=== PATIENT | male | born 1955 | race Caucasian/White ===

== ENCOUNTER 2020-07-12 10:31 | Outpatient (REF) | payer MEDICARE, SELFPAY ==
[2020-07-12 14:32] LABS: Basophils Percent Auto 0.6 % (0-2); Eosinophils Absolute Auto 0.1 X10*3/uL (0.0-0.4); Eosinophils Percent Auto 2.7 % (0-4); Hematocrit 32.7 % (42-52); Hemoglobin 10.9 g/dl (14.0-18.0); Imm Gran Abs Auto 0.03 X10*3/uL (0.00-0.03); Imm Gran Pct Auto 0.6 % (0.0-0.4); Lymphocytes Absolute Auto 0.5 X10*3/uL (1.2-4.9); Lymphocytes Percent Auto 9.3 % (20-40); MANUAL DIFF FLAG SCAN; Mean Corpuscular HGB Conc 33.3 g/dl (31.0-36.0); Mean Corpuscular Hemoglobin 29.1 pg (27.0-33.0); Mean Corpuscular Volume 87.4 fL (80-98); Mean Platelet Volume 11.2 fL (9.4-12.4); Monocytes Absolute Auto 0.4 X10*3/uL (0.1-1.2); Monocytes Percent Auto 7.2 % (2-11); Neutrophils Absolute Auto 4.2 X10*3/uL (2.0-8.3); Neutrophils Percent Auto 79.6 % (45-73); Platelet Count 117 X10*3/uL (160-400); Red Blood Count 3.74 X10*6/uL (4.60-5.80); Red Cell Distribution Width 14.1 % (11.0-16.0); SCAN SMEAR FLAG 1; White Blood Count 5.3 X10*3/uL (4.8-10.8)
[2020-07-12 14:40] LABS: Estimated Average Glucose 134 mg/dL; Hemoglobin A1c % 6.3 %
[2020-07-12 14:53] LABS: SLIDE REVIEW VERIFIED
[2020-07-12 14:57] LABS: Alanine Aminotransferase 26 U/L (0-40); Albumin Level 3.8 g/dL (3.5-5.0); Alkaline Phosphatase 110 U/L (39-117); Anion Gap 11 (12-20); Aspartate Amino Transferase 27 U/L (5-37); Bilirubin Total 0.6 mg/dL (0.0-1.0); Blood Urea Nitrogen 34 mg/dL (9-16); Calcium 8.6 mg/dL (8.4-10.2); Carbon Dioxide 31 mmol/L (22-29); Chloride 105 mmol/L (96-108); Cholesterol 110 mg/dL; Estimated Glomerular Filt Rate 41; Glucose Fasting 200 mg/dL (60-99); HDL Cholesterol 46 mg/dL; LDL Cholesterol Calculated 55 mg/dl; Potassium 3.4 mmol/l (3.3-5.1); Sodium 144 mmol/L (135-145); Total Protein 5.7 g/dL (6.5-8.0); Triglycerides 45 mg/dL
[2020-07-12 15:09] LABS: Creatinine Urine 159.59 mg/dL
[2020-07-12 16:06] LABS: Vitamin B12 476 pg/mL (200-900)
== END 2020-07-12 10:32 | disposition home or self-care (01) ==
LOC: HO.HMGCLDS 10:31
PROVIDERS: PCP Internal Medicine; Visit Provider Internal Medicine
DX: Z00.00 Encounter for general adult medical examination without abnormal findings (principal); E11.9 Type 2 diabetes mellitus without complications; E78.00 Pure hypercholesterolemia, unspecified; Z86.010 Personal history of colon polyps
CPT/HCPCS: 36415; 80053; 80061; 82043; 82607; 83036; 85025

== ENCOUNTER → 2020-07-26 14:21 | Outpatient (BNVA) | payer MEDICARE, SELFPAY | PROVIDERS: PCP Internal Medicine; Visit Provider Internal Medicine Cardiovascular Disease | DX: I11.0 Hypertensive heart disease with heart failure (principal); I50.32 Chronic diastolic (congestive) heart failure; Z79.899 Other long term (current) drug therapy | CPT/HCPCS: 99212 ==

== ENCOUNTER 2020-08-10 13:20 | Outpatient (REF) | payer MEDICARE, SELFPAY ==
[2020-08-10 15:16] LABS: Anion Gap 10 (12-20); Blood Urea Nitrogen 42 mg/dL (9-16); Calcium 9.1 mg/dL (8.4-10.2); Carbon Dioxide 32 mmol/L (22-29); Chloride 103 mmol/L (96-108); Estimated Glomerular Filt Rate 43; Glucose Random 114 mg/dL (60-115); Potassium 3.4 mmol/l (3.3-5.1); Sodium 142 mmol/L (135-145)
== END 2020-08-10 13:21 | disposition home or self-care (01) ==
LOC: HO.HMGCLDS 13:20
PROVIDERS: PCP Internal Medicine; Visit Provider Internal Medicine Cardiovascular Disease
DX: I50.32 Chronic diastolic (congestive) heart failure (principal)
CPT/HCPCS: 80048

== ENCOUNTER 2020-09-25 08:43 | Day surgery (SDC) | payer MEDICARE, SELFPAY ==
[2020-09-17 13:16] VITALS: BMI 37.5
--- NOTE | 2020-09-24 08:49 | P.CONAN_ITS ---
Documented by User: Tiki Dowd 09/24/20 08:53 HPI - Anesthesia Eval Consult details Narrative: 65yo M for Colonoscopy PMFSH Past Medical History Medical History (Updated 09/24/20 @ 08:52 by Tiki Dowd) Chronic diastolic heart failure Diabetes Hypertension Obesity Sleep apnea Family History Family History (Updated 09/17/20 @ 13:02 by Tatyana Knight) Father No problems noted. Mother Diabetes Paternal Aunt Anesthesia complication Surgical History Surgical History (Updated 09/17/20 @ 13:00 by Tatyana Knight) H/O nasal septoplasty History of adjustable gastric banding Hx of colonoscopy with polypectomy Social History Social History (Updated 09/17/20 @ 13:15 by Tatyana Knight) Alcohol intake: never Smoking Status: Current some day smoker Tobacco Type: Cigar and Pipe Use of substances other than those prescribed or required for medical reasons: No Advance Directives: No Advance Directives Information Provided: No Advance Directives on File: No Meds Allergies Allergy/AdvReac Type Severity Reaction Status Date / Time allopurinol [ALLOPURINOL] Allergy Intermediate HIVES, rash Verified 09/25/20 10:51 DUST Allergy Mild Cough Uncoded 09/25/20 10:52 Home Medications Medication Instructions Recorded Confirmed Type atorvastatin 40 mg tablet 40 mg PO BEDTIME 07/26/20 09/17/20 History carvedilol 25 mg tablet 25 mg PO BID 07/26/20 09/17/20 History lithium carbonate 150 mg capsule 150 mg PO BEDTIME cap 07/26/20 09/17/20 History metformin 1,000 mg tablet 1,000 mg PO BID 07/26/20 09/17/20 History amlodipine 1 tab PO DAILY 09/17/20 09/17/20 History aspirin 81 mg PO DAILY 09/17/20 09/17/20 History hydrochlorothiazide 50 mg PO DAILY 09/17/20 09/17/20 History insulin NPH and regular human 20 unit SUBCUT BEDTIME 09/17/20 09/25/20 History insulin NPH and regular human 40 unit SUBCUT DAILY@0730 09/17/20 09/17/20 History isosorbide mononitrate 1 tab PO DAILY 09/17/20 09/17/20 History losartan 1 tab PO BEDTIME 09/17/20 09/17/20 History multivitamin 1 tab PO DAILY 09/17/20 09/17/20 History sertraline 2 tab PO DAILY 09/17/20 09/17/20 History Exam Exam Date and Time: September 24, 2020 0849 Height,Weight and Vital Signs: Height 5 ft 7 in Weight 108.862 kg Pertinent Lab Results Pertinent Lab Results: Laboratory Tests 07/12/20 08/10/20 10:40 13:29 WBC 5.3 Hgb 10.9 L Hct 32.7 L Plt Count 117 L Sodium 142 Potassium 3.4 Chloride 103 Carbon Dioxide 32 H BUN 42 H Creatinine 1.62 H Narrative Narrative: ECHO 2019: Low nml LVEF 50-55%; No obvious RWMA, mild-mod aortic regurg; Mod pulm htn Assessment and Plan Assessment Anesthesia Assessment: Chart Reviewed Documented by User: Terrance Braswell MD 09/25/20 14:01 [facility] Past Medical History Medical History (Updated 09/24/20 @ 08:52 by Tiki Dowd) Chronic diastolic heart failure Diabetes Hypertension Obesity Sleep apnea Family History Family History (Updated 09/17/20 @ 13:02 by Tatyana Knight) Father No problems noted. Mother Diabetes Paternal Aunt Anesthesia complication Surgical History Surgical History (Updated 09/17/20 @ 13:00 by Tatyana Knight) H/O nasal septoplasty History of adjustable gastric banding Hx of colonoscopy with polypectomy Social History Social History (Updated 09/17/20 @ 13:15 by Tatyana Knight) Alcohol intake: never Smoking Status: Current some day smoker Tobacco Type: Cigar and Pipe Use of substances other than those prescribed or required for medical reasons: No Advance Directives: No Advance Directives Information Provided: No Advance Directives on File: No Meds Allergies Allergy/AdvReac Type Severity Reaction Status Date / Time allopurinol [ALLOPURINOL] Allergy Intermediate HIVES, rash Verified 09/25/20 10:51 DUST Allergy Mild Cough Uncoded 09/25/20 10:52 Home Medications Medication Instructions Recorded Confirmed Type atorvastatin 40 mg tablet 40 mg PO BEDTIME 07/26/20 09/17/20 History carvedilol 25 mg tablet 25 mg PO BID 07/26/20 09/17/20 History lithium carbonate 150 mg capsule 150 mg PO BEDTIME cap 07/26/20 09/17/20 History metformin 1,000 mg tablet 1,000 mg PO BID 07/26/20 09/17/20 History amlodipine 1 tab PO DAILY 09/17/20 09/17/20 History aspirin 81 mg PO DAILY 09/17/20 09/17/20 History hydrochlorothiazide 50 mg PO DAILY 09/17/20 09/17/20 History insulin NPH and regular human 20 unit SUBCUT BEDTIME 09/17/20 09/25/20 History insulin NPH and regular human 40 unit SUBCUT DAILY@0730 09/17/20 09/17/20 History isosorbide mononitrate 1 tab PO DAILY 09/17/20 09/17/20 History losartan 1 tab PO BEDTIME 09/17/20 09/17/20 History multivitamin 1 tab PO DAILY 09/17/20 09/17/20 History sertraline 2 tab PO DAILY 09/17/20 09/17/20 History Assessment and Plan Assessment Anesthesia Assessment: Anesthesia Plan Discussed Final Anesthetic Review NPO: Yes ASA Class: IV Final Preanesthetic Review: No Changes in Pt Med Stat, Meds/Allgs Chart Reviewed, Consent Obtained/Reviewed and Anes Risks/Benef Reviewed Patient Risk: Intermediate Procedure Risk: Low Anesthetic Plan Anesthetic Plan: MAC: Disposition: Standard PACU
[2020-09-25] VITALS (7 sets, daily range): BP systolic 164–213; BP diastolic 96–116; PULSE 59–77; RESP 12–20; TEMP 36.5–36.6; O2SAT 96–100
[2020-09-25 10:29] LABS: Glucose, Whole Blood 172 mg/dL (60-115)
[2020-09-25] MEDS: Lactated Ringers 1,000 ML 50 ML IVCONT (10:54)
--- NOTE | 2020-09-25 11:44 | OP_ITS ---
SURGEON: Seven Franco MD INDICATIONS: Colon cancer screening and prior history of adenomatous colon polyps. PREOPERATIVE DIAGNOSIS: POSTOPERATIVE DIAGNOSIS: PROCEDURE PERFORMED: Colonoscopy to the terminal ileum, snare polypectomy, and biopsy. ESTIMATED BLOOD LOSS: COMPLICATIONS: ANESTHESIA: ASSISTANTS: SPECIMENS: MEDICATIONS: Monitored anesthesia care. DESCRIPTION OF PROCEDURE: History and physical performed. The risks and benefits of the procedure were explained to the patient. Informed consent was obtained. The patient was placed in the left lateral decubitus position. A digital rectal exam was performed and was found to be normal. The Olympus pediatric video colonoscope was introduced into the rectum and advanced to the cecum without difficulty. The cecum was identified by transillumination, palpation, and identification of ileocecal valve. Examination was performed. The scope was removed. He tolerated the procedure well and was transferred to recovery area in stable condition. FINDINGS: The terminal ileum was examined and appeared normal. The visualized colonic mucosa was within normal limits without evidence of masses or ulcers. The quality of the prep was good. The exam was somewhat difficult because of the patient's respiratory motion caused the colon to be difficult to visualize at times. A polyp at 70 cm was removed with a snare measuring approximately 8 mm and recovered via suction. A second polyp in the rectosigmoid at 25 cm was removed with biopsy forceps. No other polyps were identified. The quality of the prep was good. Retroflexed examination was remarkable for small internal hemorrhoids. IMPRESSION: Colon polyps. RECOMMENDATION: Follow up the biopsy results. MD MARTITA Izquierdo/JANA / [id number]
[2020-09-25] MEDS: amLODIPine Besylate 10 MG TABLET PO (13:09)
[2020-09-25] MEDS: carvediloL 25 MG TABLET PO (13:10)
[2020-09-25] MEDS: Losartan Potassium 50 MG TABLET PO (13:13)
--- NOTE | 2020-09-25 14:01 | HO.POSTANES ---
Post Anesthesia Evaluation Post Anesthesia Evaluation Vital Signs: Vital Signs Temp Pulse Resp BP Pulse Ox 09/25/20 13:13 210/100 H 09/25/20 13:10 210/100 H 09/25/20 11:48 97.7 F 71 18 213/116 H 97 09/25/20 11:45 75 17 204/114 H 97 09/25/20 11:43 75 12 198/116 H 96 09/25/20 11:28 77 20 164/96 H 100 09/25/20 10:37 98 F 59 18 211/107 H 96 Anesthesia: Monitored Mental Status: Awake Pain Control: Satisfactory Nausea/Vomiting: None Hydration: Adequate Anesthesia-Related Issues: No Anes. Related Issues (BP consistely high pre and post-op; home meds given; asymptomatic; counseled to f/u with cards CHRISTINA)
== END 2020-09-25 14:00 | disposition home or self-care (01) ==
PROVIDERS: PCP Internal Medicine; Visit Provider Internal Medicine Gastroenterology
PROC: 0DJD8ZZ Inspection of Lower Intestinal Tract, Via Natural or Artificial Opening Endoscopic (ICD-10-PCS; CPT 45378; principal; 2020-09-25 10:40)
DX: Z12.11 Encounter for screening for malignant neoplasm of colon (principal); Z86.010 Personal history of colon polyps; D12.4 Benign neoplasm of descending colon; K63.5 Polyp of colon; K64.8 Other hemorrhoids; I11.0 Hypertensive heart disease with heart failure; I50.32 Chronic diastolic (congestive) heart failure; E11.9 Type 2 diabetes mellitus without complications; G47.33 Obstructive sleep apnea (adult) (pediatric); Z79.4 Long term (current) use of insulin; Z99.89 Dependence on other enabling machines and devices; Z79.899 Other long term (current) drug therapy; F17.290 Nicotine dependence, other tobacco product, uncomplicated; Z98.84 Bariatric surgery status
CPT/HCPCS: 45385; 45380; 82947; 88305

== ENCOUNTER → 2020-11-07 10:12 | Outpatient (BNVA) | payer MEDICARE, SELFPAY | PROVIDERS: PCP Internal Medicine; Visit Provider Internal Medicine Cardiovascular Disease | DX: I11.0 Hypertensive heart disease with heart failure (principal); I50.32 Chronic diastolic (congestive) heart failure; R06.00 Dyspnea, unspecified | CPT/HCPCS: 93005; 99212 ==

== ENCOUNTER → 2020-11-21 08:18 | Outpatient (REF) | payer MEDICARE, SELFPAY ==
--- NOTE | 2020-11-21 08:21 | CA_ITS ---
Acquisition Time: 2020-11-21 08:28:31 Total Exercise Time: 00:01:40 Test Indications: Dyspnea Medications: AMLODIPINE ASA ATORVASTATIN CARVEDILOL HCTZ ISOSORBIDE LITHIUM LOSARTAN METFORMIN SERTRALINE Protocol: ELE Max HR: 116 BPM 75% of Pred: 154 BPM Max BP: 184/080 mmHG Max Work Load: 4.0 METS Exercise stress test with exercise 1 min 40 sec of Ele protocol with moderate shortness of breath and request to stop exercise, no chest discomfort, with isolated PVCs, with mildly elevated BP at baseline with appropriate response to exercise, with nondiagnostic EKG due to suboptimal heart rate and exercise time. Will order pharm nuclear stress to eval for ischemia. Test reviewed with Dr Nino. Referred By: Molina Orellana Overread By: CRESCENCIO PUENTES
== END ==
LOC: HO.CARD 08:18
PROVIDERS: PCP Internal Medicine; Visit Provider Internal Medicine Cardiovascular Disease
DX: R06.00 Dyspnea, unspecified (principal); R06.02 Shortness of breath
CPT/HCPCS: 93016; 93017; 93018

== ENCOUNTER → 2020-11-29 07:45 | Outpatient (REF) | payer MEDICARE, SELFPAY ==
--- NOTE | ~2020-11-29 | NM_ITS ---
Lexiscan Myocardial perfusion study Indication: Shortness of breath, assess for coronary disease and ischemia Technique: The patient was brought in for a Lexiscan perfusion study on 11/29/2020 and was injected 0.4 mg of Lexiscan intravenously. Within a minute of this injection 40 mCi of sestamibi was given intravenously. Images were obtained using the SPECT gamma camera interlaced with the gating device. Images were obtained in supine position. Resting perfusion study was performed on 11/30/2020. Patient was administered 40 mCi of sestamibi intravenously at rest. Images were then obtained in supine position. Total DLP 76mGy-cm. Images were processed with the software and compared side to side in short axis, horizontal long axis and vertical long axis views. Findings: Raw acquisition was reviewed. The stress perfusion study showed diminished tracer uptake along the inferior wall and basal inferolateral wall. There is also decreased uptake in the mid teri septum. With CT attenuation correction, there is significant improvement in the inferior wall and inferolateral wall suggestive of diaphragmatic attenuation artifact. The anteroseptal defect also improves suggesting soft tissue attenuation. The gated study shows normal LV systolic function with calculated LVEF of 60%. LV cavity is normal in size. The gated study shows normal wall thickening and contraction of segments. Resting study shows diminished tracer uptake along the basal to mid inferior and inferolateral wall. Gating at rest reveals normal wall motion with ejection fraction at 63%. The findings are consistent with reversible mid anteroseptal defect suspected to be from soft tissue artifact. Inferior/inferolateral defect with fixed and some reversible components but could be from diaphragmatic artifact. NM/NM j luis perf SPECT rest & str Impression: 1. Myocardial perfusion imaging study shows reversible mid anteroseptal defect suspected to be from soft tissue artifact. Inferior/inferolateral defect with reversible and fixed components, again suspected to be from diaphragmatic artifact. Less likely from ischemia or infarct. Correlate clinically. 2. Gated LVEF is 60% during stress and 63% during rest. 3. Transient ischemic dilatation not present. EKG component of the test reported separately.
--- NOTE | 2020-11-29 08:00 | CA_ITS ---
Acquisition Time: 2020-11-29 08:01:53 Total Exercise Time: 00:02:00 Test Indications: Dyspnea Medications: AMLODIPINE ASA ATORVASTATIN CARVEDILOL HCTZ ISOSORBIDE LITHIUM LOSARTAN METFORMIN SERTRALINE Protocol: LEXISCAN Max HR: 080 BPM 51% of Pred: 154 BPM Max BP: 152/082 mmHG Max Work Load: 1.0 METS Pharmacological stress test using Lexiscan while sitting and kicking his feet. Pt tolerated well. Denies any anginal sx. EKG with PVC's, non-diagnostic for ischemia. Nuclear images to follow. Normotensive response to test. Test reviewed with Dr. Nino. Referred By: Monica Sue Overread By:
== END ==
LOC: HO.CARD 07:45
PROVIDERS: Visit Provider Nurse Practitioner Family
DX: I50.32 Chronic diastolic (congestive) heart failure (principal); R06.00 Dyspnea, unspecified; R94.30 Abnormal result of cardiovascular function study, unspecified
CPT/HCPCS: 78452; 93017; A9500; J0280; J2785

== ENCOUNTER → 2020-11-30 10:58 | Outpatient (BNVA) | payer MEDICARE, SELFPAY | PROVIDERS: PCP Internal Medicine; Visit Provider Nurse Practitioner Family | DX: R06.00 Dyspnea, unspecified (principal); R94.30 Abnormal result of cardiovascular function study, unspecified; I11.0 Hypertensive heart disease with heart failure; I50.32 Chronic diastolic (congestive) heart failure; G47.30 Sleep apnea, unspecified; E11.9 Type 2 diabetes mellitus without complications; Z79.899 Other long term (current) drug therapy; Z87.891 Personal history of nicotine dependence | CPT/HCPCS: Q3014 ==

== ENCOUNTER 2020-12-10 11:44 | Outpatient (REF) | payer MEDICARE, SELFPAY ==
[2020-12-10 14:46] LABS: INTERNATIONAL NORM RATIO 1.1 (0.9-1.1); Prothrombin Time 12.5 SEC (10.8-13.0)
[2020-12-10 14:57] LABS: Anion Gap 11 (12-20); Blood Urea Nitrogen 34 mg/dL (9-16); Calcium 8.6 mg/dL (8.4-10.2); Carbon Dioxide 29 mmol/L (22-29); Chloride 103 mmol/L (96-108); Estimated Glomerular Filt Rate 37; Glucose Random 188 mg/dL (60-115); Potassium 3.2 mmol/L (3.3-5.1); Sodium 140 mmol/L (135-145)
[2020-12-10 15:01] LABS: Hematocrit 29.2 % (42-52); Hemoglobin 9.9 g/dl (14.0-18.0); Mean Corpuscular HGB Conc 33.9 g/dl (31.0-36.0); Mean Corpuscular Hemoglobin 28.2 pg (27.0-33.0); Mean Corpuscular Volume 83.2 fL (80-98); Mean Platelet Volume 11.1 fL (9.4-12.4); Platelet Count 130 X10*3/uL (160-400); Red Blood Count 3.51 X10*6/uL (4.60-5.80); Red Cell Distribution Width 13.6 % (11.0-16.0); White Blood Count 4.7 X10*3/uL (4.8-10.8)
== END 2020-12-10 11:45 | disposition home or self-care (01) ==
LOC: HO.HMGCLDS 11:44
PROVIDERS: PCP Internal Medicine; Visit Provider Internal Medicine Cardiovascular Disease
DX: R94.30 Abnormal result of cardiovascular function study, unspecified (principal)
CPT/HCPCS: 36415; 80048; 85027; 85610

== ENCOUNTER 2020-12-17 12:46 | Outpatient (REF) | payer MEDICARE, SELFPAY ==
[2020-12-17 15:31] LABS: Anion Gap 12 (12-20); Blood Urea Nitrogen 31 mg/dL (9-16); Calcium 8.5 mg/dL (8.4-10.2); Carbon Dioxide 29 mmol/L (22-29); Chloride 101 mmol/L (96-108); Estimated Glomerular Filt Rate 31; Glucose Random 64 mg/dL (60-115); Potassium 3.3 mmol/L (3.3-5.1); Sodium 139 mmol/L (135-145)
== END 2020-12-17 12:47 | disposition home or self-care (01) ==
LOC: HO.HMGCLNP 12:46
PROVIDERS: PCP Internal Medicine; Visit Provider Internal Medicine Cardiovascular Disease
DX: I50.32 Chronic diastolic (congestive) heart failure (principal)
CPT/HCPCS: 80048

== ENCOUNTER 2020-12-20 10:41 | Outpatient (REF) | payer MEDICARE, SELFPAY ==
[2020-12-20 14:30] LABS: Anion Gap 14 (12-20); Blood Urea Nitrogen 32 mg/dL (9-16); Calcium 8.7 mg/dL (8.4-10.2); Carbon Dioxide 28 mmol/L (22-29); Chloride 104 mmol/L (96-108); Estimated Glomerular Filt Rate 33; Glucose Random 172 mg/dL (60-115); Potassium 3.1 mmol/L (3.3-5.1); Sodium 143 mmol/L (135-145)
== END 2020-12-20 10:42 | disposition home or self-care (01) ==
LOC: HO.HMGCLDS 10:41
PROVIDERS: PCP Internal Medicine; Visit Provider Internal Medicine Cardiovascular Disease
DX: N17.9 Acute kidney failure, unspecified (principal)
CPT/HCPCS: 36415; 80048

== ENCOUNTER 2020-12-21 10:21 | Outpatient (REF) | payer MEDICARE, SELFPAY ==
--- NOTE | ~2020-12-21 | XR_ITS ---
EXAMINATION: XR KNEE, LEFT CLINICAL INFORMATION: Unspecified injury left lower leg. COMPARISON: None TECHNIQUE: Four views of the left knee. FINDINGS: There is moderate soft tissue density anterior to the patella likely hemorrhage. No visible fracture, dislocation subluxation seen. Mild loss of medial compartment joint space with periapical spurring in the lateral and patellofemoral compartment joint is noted. The soft tissues are unremarkable. XR/XR knee LT 4V IMPRESSION: Moderate soft tissue density anterior patella likely hematoma. Mild degenerative changes medial and patellofemoral compartment with periarticular spurring.
== END 2020-12-21 10:22 | disposition home or self-care (01) ==
LOC: HO.HMGCX 10:21
PROVIDERS: PCP Internal Medicine; Visit Provider Nurse Practitioner Family
DX: S89.92XA Unspecified injury of left lower leg, initial encounter (principal); T14.8XXA Other injury of unspecified body region, initial encounter; X58.XXXA Exposure to other specified factors, initial encounter; Y93.9 Activity, unspecified; Y92.9 Unspecified place or not applicable; Y99.9 Unspecified external cause status
CPT/HCPCS: 73564

== ENCOUNTER → 2020-12-24 13:24 | Outpatient (BNVA) | payer MEDICARE, SELFPAY | PROVIDERS: PCP Internal Medicine; Visit Provider Internal Medicine Cardiovascular Disease | DX: I11.0 Hypertensive heart disease with heart failure (principal); I50.32 Chronic diastolic (congestive) heart failure; R06.00 Dyspnea, unspecified; R94.30 Abnormal result of cardiovascular function study, unspecified; G47.30 Sleep apnea, unspecified; E11.9 Type 2 diabetes mellitus without complications; Z98.890 Other specified postprocedural states | CPT/HCPCS: 99212 ==

== ENCOUNTER → 2021-02-05 14:06 | Outpatient (BNVA) | payer MEDICARE, SELFPAY | PROVIDERS: PCP Internal Medicine; Visit Provider Internal Medicine | DX: G47.30 Sleep apnea, unspecified (principal); R06.00 Dyspnea, unspecified; I50.32 Chronic diastolic (congestive) heart failure | CPT/HCPCS: 99202 ==

== ENCOUNTER → 2021-02-13 11:13 | Outpatient (BNVA) | payer MEDICARE, SELFPAY | PROVIDERS: PCP Internal Medicine; Visit Provider Internal Medicine Cardiovascular Disease | DX: I11.0 Hypertensive heart disease with heart failure (principal); I50.32 Chronic diastolic (congestive) heart failure | CPT/HCPCS: 99212 ==

== ENCOUNTER 2021-02-19 14:01 | Outpatient (REF) | payer MEDICARE, SELFPAY ==
--- NOTE | 2021-02-19 17:39 | PFT_ITS ---
INDICATION: Shortness of breath. SPIROMETRY: The FEV1 to FVC of 83% with an FEV1 of 2.45 L, which is 81% predicted, and an FVC of 2.95 L, which is 73% predicted. No significant response to bronchodilators noted. Maximum voluntary ventilation 95% predicted. LUNG VOLUMES: Total lung capacity 86% predicted. DIFFUSION CAPACITY: DLCO 58% predicted. Flow volume loop appears to have some slight concavity to the expiratory limb suggesting an obstructive physiology. COMPARISONS: None. INTERPRETATION: No definitive obstructive nor restrictive ventilatory defects identified. No significant response to bronchodilators noted. Of note, the flow volume loop appeared to have a concavity suggesting possibly an obstructive physiology. Normal maximum voluntary ventilation. Lung volumes are within normal limits. The patient does have an isolated moderate diffusion impairment, therefore need to consider underlying pulmonary vascular conditions and/or occult interstitial lung conditions. Should also correct for anemia. Clinical correlation warranted. MD IFEANYI Heath/MODL / [id number]
== END 2021-02-19 14:02 | disposition home or self-care (01) ==
LOC: HO.RESP 14:01
PROVIDERS: PCP Internal Medicine; Visit Provider Internal Medicine
DX: R06.00 Dyspnea, unspecified (principal)
CPT/HCPCS: 94060; 94727; 94729

== ENCOUNTER → 2021-02-28 14:08 | Outpatient (BNVA) | payer MEDICARE, SELFPAY | PROVIDERS: PCP Internal Medicine; Visit Provider Internal Medicine | DX: R06.00 Dyspnea, unspecified (principal); G47.30 Sleep apnea, unspecified; I50.32 Chronic diastolic (congestive) heart failure | CPT/HCPCS: 99212 ==

== ENCOUNTER 2021-03-08 08:25 | Outpatient (REF) | payer MEDICARE, SELFPAY ==
--- NOTE | ~2021-03-08 | XR_ITS ---
EXAMINATION: XR KNEE, LEFT CLINICAL INFORMATION: Knee pain COMPARISON: 12/21/2020 TECHNIQUE: Single skyline view of the left knee. FINDINGS: Some posterior osteophytes are seen similar to those noted on the 12/21/2020 exam. No other bony abnormality is detected. Prepatellar soft tissue swelling is seen. XR/XR knee LT 3V IMPRESSION: Osteophytes on the posterior surface of the patella
== END 2021-03-08 08:26 | disposition home or self-care (01) ==
LOC: HO.HOSX 08:25
PROVIDERS: Visit Provider Physician Assistant
DX: M17.12 Unilateral primary osteoarthritis, left knee (principal)
CPT/HCPCS: 20610; 73562; 99202; J1040

== ENCOUNTER → 2021-03-25 12:35 | Outpatient (BNVA) | payer MEDICARE, SELFPAY | PROVIDERS: PCP Internal Medicine; Visit Provider Internal Medicine Cardiovascular Disease ==

== ENCOUNTER 2021-04-03 12:53 | Outpatient (REF) | payer MEDICARE, SELFPAY ==
[2021-04-03 13:55] LABS: MANUAL DIFF FLAG NO
[2021-04-03 13:56] LABS: Basophils Percent Auto 0.2 % (0-2); Eosinophils Absolute Auto 0.1 X10*3/uL (0.0-0.4); Hematocrit 29.3 % (42-52); Hemoglobin 9.7 g/dl (14.0-18.0); Imm Gran Abs Auto 0.01 X10*3/uL (0.00-0.03); Imm Gran Pct Auto 0.2 % (0.0-0.4); Lymphocytes Absolute Auto 0.4 X10*3/uL (1.2-4.9); Mean Corpuscular HGB Conc 33.1 g/dl (31.0-36.0); Mean Corpuscular Hemoglobin 27.1 pg (27.0-33.0); Mean Corpuscular Volume 81.8 fL (80-98); Mean Platelet Volume 10.6 fL (9.4-12.4); Monocytes Absolute Auto 0.3 X10*3/uL (0.1-1.2); Monocytes Percent Auto 7.1 % (2-11); Neutrophils Absolute Auto 3.3 X10*3/uL (2.0-8.3); Neutrophils Percent Auto 81.5 % (45-73); Platelet Count 122 X10*3/uL (160-400); Red Blood Count 3.58 X10*6/uL (4.60-5.80); Red Cell Distribution Width 16.8 % (11.0-16.0); White Blood Count 4.1 X10*3/uL (4.8-10.8)
[2021-04-03 14:10] LABS: Estimated Average Glucose 134 mg/dL; Hemoglobin A1c % 6.3 %
[2021-04-03 14:26] LABS: Alanine Aminotransferase 26 U/L (0-40); Albumin Level 3.8 g/dL (3.5-5.0); Alkaline Phosphatase 118 U/L (39-117); Anion Gap 14 (12-20); Aspartate Amino Transferase 19 U/L (5-37); Bilirubin Total 0.8 mg/dL (0.0-1.0); Blood Urea Nitrogen 34 mg/dL (9-16); Calcium 9.3 mg/dL (8.4-10.2); Carbon Dioxide 26 mmol/L (22-29); Chloride 105 mmol/L (96-108); Estimated Glomerular Filt Rate 31; Glucose Random 153 mg/dL (60-115); Potassium 3.2 mmol/L (3.3-5.1); Sodium 142 mmol/L (135-145); Total Protein 5.8 g/dL (6.5-8.0)
[2021-04-03 14:52] LABS: Ferritin 127 ng/mL (20-250)
[2021-04-03 15:00] LABS: Vitamin B12 622 pg/mL (200-900)
== END 2021-04-03 12:54 | disposition home or self-care (01) ==
LOC: HO.HMGCLDS 12:53
PROVIDERS: PCP Internal Medicine; Visit Provider Internal Medicine
DX: E11.22 Type 2 diabetes mellitus with diabetic chronic kidney disease (principal); I12.9 Hypertensive chronic kidney disease with stage 1 through stage 4 chronic kidney disease, or unspecified chronic kidney disease; N18.9 Chronic kidney disease, unspecified; D63.1 Anemia in chronic kidney disease; H26.8 Other specified cataract
CPT/HCPCS: 36415; 80053; 82607; 82728; 83036; 85025

== ENCOUNTER 2021-05-27 10:59 | Outpatient (REF) | payer MEDICARE, SELFPAY ==
[2021-05-27 14:11] LABS: MANUAL DIFF FLAG NO
[2021-05-27 14:27] LABS: Basophils Percent Auto 0.2 % (0-2); Eosinophils Absolute Auto 0.1 X10*3/uL (0.0-0.4); Hematocrit 28.4 % (42-52); Hemoglobin 9.3 g/dl (14.0-18.0); Imm Gran Abs Auto 0.02 X10*3/uL (0.00-0.03); Imm Gran Pct Auto 0.4 % (0.0-0.4); Lymphocytes Absolute Auto 0.4 X10*3/uL (1.2-4.9); Lymphocytes Percent Auto 7.3 % (20-40); Mean Corpuscular HGB Conc 32.7 g/dl (31.0-36.0); Mean Corpuscular Hemoglobin 28.2 pg (27.0-33.0); Mean Corpuscular Volume 86.1 fL (80-98); Mean Platelet Volume 11.2 fL (9.4-12.4); Monocytes Absolute Auto 0.5 X10*3/uL (0.1-1.2); Monocytes Percent Auto 9.4 % (2-11); Neutrophils Absolute Auto 4.1 X10*3/uL (2.0-8.3); Neutrophils Percent Auto 80.7 % (45-73); Platelet Count 123 X10*3/uL (160-400); Red Cell Distribution Width 16.4 % (11.0-16.0); White Blood Count 5.1 X10*3/uL (4.8-10.8)
[2021-05-27 14:45] LABS: Anion Gap 15 (12-20); Blood Urea Nitrogen 30 mg/dL (9-16); Calcium 8.4 mg/dL (8.4-10.2); Carbon Dioxide 25 mmol/L (22-29); Chloride 106 mmol/L (96-108); Estimated Glomerular Filt Rate 29; Iron 94 mcg/dL (45-160); Percent Iron Saturation 27 % (15-50); Phosphorus 3.3 mg/dL (2.7-4.5); Potassium 3.1 mmol/L (3.3-5.1); Sodium 143 mmol/L (135-145); Total Iron Binding Capacity 344 mcg/dL (228-428); Unsaturated Iron Binding 250 ug/dL; Uric Acid 6.7 mg/dL (3.4-7.0)
[2021-05-27 14:58] LABS: Ferritin 339 ng/mL (20-250); Vitamin D 25-OH Total 26.4 ng/mL (>30)
[2021-05-27 15:28] LABS: Creatinine Urine 37.09 mg/dL
[2021-05-27 15:40] LABS: Protein/Creatinine Ratio, Ur 7.31 (<0.2); Total Protein Urine Random 271 mg/dL (<12)
[2021-05-28 19:27] LABS: Calcium (PTHI) 8.5 mg/dL (8.6-10.3); PTHI 224 pg/mL (14-64)
== END 2021-05-27 11:00 | disposition home or self-care (01) ==
LOC: HO.HMGCLDS 10:59
PROVIDERS: PCP Internal Medicine; Visit Provider Internal Medicine Nephrology
DX: D50.8 Other iron deficiency anemias (principal); D63.1 Anemia in chronic kidney disease; E11.29 Type 2 diabetes mellitus with other diabetic kidney complication; N18.32 Chronic kidney disease, stage 3b; E11.21 Type 2 diabetes mellitus with diabetic nephropathy; E11.22 Type 2 diabetes mellitus with diabetic chronic kidney disease; G47.33 Obstructive sleep apnea (adult) (pediatric); R80.9 Proteinuria, unspecified; N28.1 Cyst of kidney, acquired; I51.9 Heart disease, unspecified; R60.0 Localized edema
CPT/HCPCS: 36415; 80051; 82306; 82310; 82565; 82728; 83540; 83735; 83970; 84100; 84156; 84520; 84550; 85025

== ENCOUNTER 2021-07-03 14:17 | Outpatient (REF) | payer MEDICARE, SELFPAY ==
[2021-07-03 16:41] LABS: Estimated Average Glucose 140 mg/dL; Hemoglobin A1c % 6.5 %
[2021-07-03 16:58] LABS: Alanine Aminotransferase 34 U/L (0-40); Albumin Level 3.5 g/dL (3.5-5.0); Alkaline Phosphatase 146 U/L (39-117); Anion Gap 11 (12-20); Aspartate Amino Transferase 27 U/L (5-37); Bilirubin Total 0.6 mg/dL (0.0-1.0); Blood Urea Nitrogen 37 mg/dL (9-16); Calcium 8.5 mg/dL (8.4-10.2); Carbon Dioxide 24 mmol/L (22-29); Chloride 108 mmol/L (96-108); Estimated Glomerular Filt Rate 28; Glucose Random 215 mg/dL (60-115); Potassium 3.4 mmol/L (3.3-5.1); Sodium 140 mmol/L (135-145); Total Protein 5.5 g/dL (6.5-8.0)
== END 2021-07-03 14:18 | disposition home or self-care (01) ==
LOC: HO.HMGCLDS 14:17
PROVIDERS: PCP Internal Medicine; Visit Provider Internal Medicine
DX: D69.6 Thrombocytopenia, unspecified (principal); E11.22 Type 2 diabetes mellitus with diabetic chronic kidney disease; I13.2 Hypertensive heart and chronic kidney disease with heart failure and with stage 5 chronic kidney disease, or end stage renal disease; I50.43 Acute on chronic combined systolic (congestive) and diastolic (congestive) heart failure; N18.9 Chronic kidney disease, unspecified; D63.1 Anemia in chronic kidney disease
CPT/HCPCS: 36415; 80053; 83036

== ENCOUNTER → 2021-07-18 15:57 | Outpatient (BNVA) | payer MEDICARE, SELFPAY | PROVIDERS: PCP Internal Medicine; Visit Provider Internal Medicine Cardiovascular Disease | DX: I11.0 Hypertensive heart disease with heart failure (principal); I50.32 Chronic diastolic (congestive) heart failure | CPT/HCPCS: 99212 ==

== ENCOUNTER → 2021-07-25 14:55 | Outpatient (BNVA) | payer MEDICARE, SELFPAY | PROVIDERS: PCP Internal Medicine; Referring Provider Internal Medicine; Visit Provider Internal Medicine Cardiovascular Disease ==

== ENCOUNTER 2021-10-03 13:30 | Outpatient (REF) | payer MEDICARE, SELFPAY ==
[2021-10-03 16:32] LABS: MANUAL DIFF FLAG NO
[2021-10-03 16:36] LABS: Basophils Percent Auto 0.6 % (0-2); Eosinophils Absolute Auto 0.2 X10*3/uL (0.0-0.4); Eosinophils Percent Auto 4.9 % (0-4); Hematocrit 30.4 % (42.0-52.0); Hemoglobin 9.9 g/dl (14.0-18.0); Imm Gran Abs Auto 0.03 X10*3/uL (0.00-0.03); Imm Gran Pct Auto 0.6 % (0.0-0.4); Lymphocytes Absolute Auto 0.5 X10*3/uL (1.2-4.9); Lymphocytes Percent Auto 11.2 % (20-40); Mean Corpuscular HGB Conc 32.6 g/dl (31.0-36.0); Mean Corpuscular Hemoglobin 28.4 pg (27.0-33.0); Mean Corpuscular Volume 87.1 fL (80.0-98.0); Mean Platelet Volume 11.3 fL (9.4-12.4); Monocytes Absolute Auto 0.8 X10*3/uL (0.1-1.2); Monocytes Percent Auto 16.9 % (2-11); Neutrophils Absolute Auto 3.1 x10*3/uL (2.0-8.3); Neutrophils Percent Auto 65.8 % (45-73); Platelet Count 143 X10*3/uL (160-400); Red Blood Count 3.49 X10*6/uL (4.60-5.80); Red Cell Distribution Width 13.4 % (11.0-16.0); White Blood Count 4.7 X10*3/uL (4.8-10.8)
[2021-10-03 16:43] LABS: Estimated Average Glucose 157 mg/dL; Hemoglobin A1c % 7.1 %
[2021-10-03 17:05] LABS: Alanine Aminotransferase 31 U/L (0-40); Albumin Level 3.8 g/dL (3.5-5.0); Alkaline Phosphatase 194 U/L (39-117); Anion Gap 11 (12-20); Aspartate Amino Transferase 26 U/L (5-37); Bilirubin Total 0.5 mg/dL (0.0-1.0); Blood Urea Nitrogen 55 mg/dL (9-16); Calcium 9.2 mg/dL (8.4-10.2); Carbon Dioxide 32 mmol/L (22-29); Chloride 106 mmol/L (96-108); Cholesterol 124 mg/dL; Estimated Glomerular Filt Rate 26; HDL Cholesterol 44 mg/dL; LDL Cholesterol Calculated 70 mg/dl; Sodium 144 mmol/L (135-145); Total Protein 6.1 g/dL (6.5-8.0); Triglycerides 51 mg/dL
[2021-10-03 17:43] LABS: Creatinine Urine 58.74 mg/dL
[2021-10-03 18:15] LABS: Microalbum/Creatinine Ratio Ur 4528.4 ug/mg cr
[2021-10-03 18:33] LABS: Glucose Random 58 mg/dL (60-115)
[2021-10-04 12:21] LABS: Calcium (PTHI) 9.1 mg/dL (8.6-10.3); PTHI 289 pg/mL (14-64)
== END 2021-10-03 13:31 | disposition home or self-care (01) ==
LOC: HO.HMGCLDS 13:30
PROVIDERS: PCP Internal Medicine; Visit Provider Internal Medicine
DX: Z00.01 Encounter for general adult medical examination with abnormal findings (principal); N18.9 Chronic kidney disease, unspecified; D63.1 Anemia in chronic kidney disease; E11.22 Type 2 diabetes mellitus with diabetic chronic kidney disease; E11.311 Type 2 diabetes mellitus with unspecified diabetic retinopathy with macular edema; G47.33 Obstructive sleep apnea (adult) (pediatric)
CPT/HCPCS: 36415; 80053; 80061; 82043; 83036; 83970; 85025

== ENCOUNTER 2022-03-12 18:42 | Inpatient (IN) | payer MEDICARE, SELFPAY ==
[2022-03-12] VITALS (7 sets, daily range): BP systolic 127–182; BP diastolic 71–91; PULSE 63–84; RESP 13–19; TEMP 36.7–37.1; O2SAT 96–98; BMI 39.2
--- NOTE | 2022-03-12 18:56 | ECG_ITS ---
Test Reason : ABNORMAL LABS Blood Pressure : / mmHG Vent. Rate : 067 BPM Atrial Rate : 067 BPM P-R Int : 186 ms QRS Dur : 090 ms QT Int : 428 ms P-R-T Axes : 086 -38 082 degrees QTc Int : 452 ms Sinus rhythm with Premature atrial complexes Left axis deviation Nonspecific T wave abnormality Abnormal ECG When compared with ECG of 23-DEC-2018 00:10, Premature ventricular complexes are no longer Present Premature atrial complexes are now Present Referred By: Generic ED Physician Electronically Signed By:Molina Orellana
[2022-03-12 19:27] LABS: MANUAL DIFF FLAG NO
[2022-03-12 19:29] LABS: Basophils Percent Auto 0.4 % (0-2); Eosinophils Absolute Auto 0.1 X10*3/uL (0.0-0.4); Eosinophils Percent Auto 1.7 % (0-4); Imm Gran Abs Auto 0.03 X10*3/uL (0.00-0.03); Imm Gran Pct Auto 0.6 % (0.0-0.4); Lymphocytes Absolute Auto 0.5 X10*3/uL (1.2-4.9); Lymphocytes Percent Auto 10.5 % (20-40); Mean Corpuscular HGB Conc 29.1 g/dl (31.0-36.0); Mean Corpuscular Volume 79.1 fL (80.0-98.0); Mean Platelet Volume 10.5 fL (9.4-12.4); Monocytes Absolute Auto 0.5 X10*3/uL (0.1-1.2); Monocytes Percent Auto 10.7 % (2-11); Neutrophils Absolute Auto 3.6 x10*3/uL (2.0-8.3); Neutrophils Percent Auto 76.1 % (45-73); Platelet Count 124 X10*3/uL (160-400); Red Cell Distribution Width 14.5 % (11.0-16.0); White Blood Count 4.8 X10*3/uL (4.8-10.8)
[2022-03-12 19:32] LABS: Hemoglobin 5.3 g/dl (14.0-18.0)
[2022-03-12 19:33] LABS: Hematocrit 18.2 % (42.0-52.0)
[2022-03-12 19:54] LABS: Alanine Aminotransferase 15 U/L (0-40); Albumin Level 3.7 g/dL (3.5-5.0); Alkaline Phosphatase 102 U/L (39-117); Anion Gap 14 (12-20); Aspartate Amino Transferase 20 U/L (5-37); Bilirubin Total 0.4 mg/dL (0.0-1.0); Blood Urea Nitrogen 27 mg/dL (9-16); Calcium 8.5 mg/dL (8.4-10.2); Carbon Dioxide 27 mmol/L (22-29); Chloride 104 mmol/L (96-108); Estimated Glomerular Filt Rate 17; Glucose Random 193 mg/dL (60-115); Potassium 4.1 mmol/L (3.3-5.1); Sodium 141 mmol/L (135-145); Total Protein 5.6 g/dL (6.5-8.0)
--- NOTE | 2022-03-12 20:09 | ED.RECABL ---
HPI - Recheck/Abnormal Lab/Rx General Chief Complaint: Recheck/Abnormal Lab/Rx Stated Complaint: abnormal labs per md Time Seen by Provider: 03/12/22 20:02 History of Present Illness HPI narrative: Patient 67 years old with history of stage IV CKD not on dialysis yet diabetic, chronic anemia secondary to CKD, hypertension, diastolic dysfunction, depression sent by PCP office for hemoglobin of 5.3 for blood transfusion. Patient been feeling weak and tired and at with exertional dyspnea for last few days, patient had 3 units of blood transfusion about 6 months ago anemia was told to him is from kidneys previous colonoscopy was negative never had an endoscopy patient denies any abdominal pain or heartburn. For last few days patient noticed black stools off and on. Patient has not seen any early interventionist no abdominal pain no use of NSAID Related Data Home Medications Medication Instructions Recorded Confirmed atorvastatin 40 mg tablet (Lipitor) 40 mg PO BEDTIME 07/26/20 03/12/22 carvedilol 25 mg tablet 25 mg PO BID 07/26/20 03/12/22 isosorbide mononitrate 120 mg 1 tab PO DAILY 09/17/20 03/12/22 tablet,extended release 24 hr multivitamin 1 tab PO DAILY 09/17/20 03/12/22 sertraline 100 mg tablet 2 tab PO DAILY 09/17/20 03/12/22 amlodipine 10 mg tablet 10 mg PO DAILY 02/13/21 03/12/22 cholecalciferol (vitamin D3) 25 2 tab PO DAILY 03/12/22 03/12/22 mcg (1,000 unit) tablet (Vitamin D3) furosemide 80 mg tablet 1 tab PO BID 03/12/22 03/12/22 insulin NPH-regular 70-30 U-100 20 unit subcut BEDTIME 03/12/22 03/12/22 insulin 100 unit/mL subcutaneous pen (Humulin 70/30 U-100 KwikPen) insulin NPH-regular 70-30 U-100 40 unit subcut DAILY 03/12/22 03/12/22 insulin 100 unit/mL subcutaneous pen (Humulin 70/30 U-100 KwikPen) lamotrigine 25 mg tablet 3 tab PO DAILY 03/12/22 03/12/22 Previous Rx's Medication Instructions Recorded losartan 100 mg tablet 100 mg PO DAILY #90 tabs 01/24/21 clonidine HCl 0.1 mg tablet 0.1 mg PO BID #60 tabs 01/02/22 Allergies Allergy/AdvReac Type Severity Reaction Status Date / Time allopurinol [ALLOPURINOL] Allergy Intermediate HIVES, rash Verified 07/18/21 16:02 DUST Allergy Mild Cough Uncoded 09/25/20 10:52 Review of Systems Review of Systems: Yes all other systems are reviewed and are negative PMFSH Past Medical History Medical History Obesity Surgical History H/O nasal septoplasty History of adjustable gastric banding Hx of colonoscopy with polypectomy Family History Family History Father No problems noted. Mother Diabetes Paternal Aunt Anesthesia complication Social History Social History Alcohol intake: never Patient Tobacco Use Status: Never used Tobacco Use of substances other than those prescribed or required for medical reasons: No Advance Directives: No Advance Directives Information Provided: Yes Current occupational status: retired Current occupation: rt hand Physical Exam Vital Signs: Vital Signs: Last Vital Signs Temp 98.4 F 03/13/22 00:43 Pulse 61 03/13/22 00:43 Resp 16 03/13/22 00:43 BP 186/93 H 03/13/22 00:43 Pulse Ox 96 03/12/22 23:37 O2 Del Method 03/12/22 23:37 BMI result Body Mass Index 39.2 Appearance: Alert. Oriented X3. No acute distress. Eyes: Significant pallor++ ENT: Pharynx normal. Oral Mucosa moist Neck: Normal inspection. Neck supple. CVS: Normal heart rate and rhythm. Pulses normal. Respiratory: No respiratory distress. Equal air entry bilateral, no wheezing/rales/rhonchi Abdomen: Soft and nontender. Bowel sounds are present, no mass palpable, no CVA tenderness rectal: Dark stool guaiac positive Skin: Skin warm and dry. Pallor+++ Normal skin turgor. Extremities: No lower extremity edema. No calf tenderness Neuro: Oriented X 3. No motor deficit. No sensory deficit.No cerebellar signs , cranial nerves II-XII intact MDM - Recheck/Abnormal Lab/Rx Lab Data Attestation: I reviewed the patient's lab results. Result diagrams: 03/12/22 19:21 03/12/22 19:21 Labs: Lab Results 03/12/22 03/12/22 03/12/22 Range/Units 19:21 19:21 19:21 WBC 4.8 (4.8-10.8) X10*3/uL RBC 2.30 L D (4.60-5.80) X10*6/uL Hgb 5.3 L* D (14.0-18.0) g/dl Hct 18.2 L* D (42.0-52.0) % MCV 79.1 L (80.0-98.0) fL MCH 23.0 L (27.0-33.0) pg MCHC 29.1 L (31.0-36.0) g/dl RDW 14.5 (11.0-16.0) % Plt Count 124 L (160-400) X10*3/uL MPV 10.5 (9.4-12.4) fL Immature Gran % (Auto) 0.6 H (0.0-0.4) % Neut % (Auto) 76.1 H (45-73) % Lymph % (Auto) 10.5 L (20-40) % [place] % (Auto) 10.7 (2-11) % Eos % (Auto) 1.7 (0-4) % Baso % (Auto) 0.4 (0-2) % Lymph # (Auto) 0.5 L (1.2-4.9) X10*3/uL [place] # (Auto) 0.5 (0.1-1.2) X10*3/uL Eos # (Auto) 0.1 (0.0-0.4) X10*3/uL Baso # (Auto) 0.0 (0.0-0.2) X10*3/uL Abs Immat Gran (auto) 0.03 (0.00-0.03) X10*3/uL Absolute Neuts (auto) 3.6 (2.0-8.3) x10*3/uL Absolute Nucleated RBC 0.000 (0.0-0.012) X10*3/uL Nucleated RBC % (auto) 0.0 (0.0-0.2) /100WBC Sodium 141 (135-145) mmol/L Potassium 4.1 (3.3-5.1) mmol/L Chloride 104 (96-108) mmol/L Carbon Dioxide 27 (22-29) mmol/L Anion Gap 14 (12-20) BUN 27 H D (9-16) mg/dL Creatinine 3.54 H (0.5-1.4) mg/dL Estim Creat Clear Calc 24.0 Estimated GFR 17 Random Glucose 193 H D (60-115) mg/dL Calcium 8.5 D (8.4-10.2) mg/dL Ferritin 22 (20-250) ng/mL Total Bilirubin 0.4 (0.0-1.0) mg/dL AST 20 (5-37) U/L ALT 15 (0-40) U/L Alkaline Phosphatase 102 D (39-117) U/L Total Protein 5.6 L (6.5-8.0) g/dL Albumin 3.7 (3.5-5.0) g/dL Stool Occult Blood (NEGATIVE) Blood Type O Positive Antibody Screen NEGATIVE Crossmatch See Detail 03/12/22 Range/Units 20:58 WBC (4.8-10.8) X10*3/uL RBC (4.60-5.80) X10*6/uL Hgb (14.0-18.0) g/dl Hct (42.0-52.0) % MCV (80.0-98.0) fL MCH (27.0-33.0) pg MCHC (31.0-36.0) g/dl RDW (11.0-16.0) % Plt Count (160-400) X10*3/uL MPV (9.4-12.4) fL Immature Gran % (Auto) (0.0-0.4) % Neut % (Auto) (45-73) % Lymph % (Auto) (20-40) % [place] % (Auto) (2-11) % Eos % (Auto) (0-4) % Baso % (Auto) (0-2) % Lymph # (Auto) (1.2-4.9) X10*3/uL [place] # (Auto) (0.1-1.2) X10*3/uL Eos # (Auto) (0.0-0.4) X10*3/uL Baso # (Auto) (0.0-0.2) X10*3/uL Abs Immat Gran (auto) (0.00-0.03) X10*3/uL Absolute Neuts (auto) (2.0-8.3) x10*3/uL Absolute Nucleated RBC (0.0-0.012) X10*3/uL Nucleated RBC % (auto) (0.0-0.2) /100WBC Sodium (135-145) mmol/L Potassium (3.3-5.1) mmol/L Chloride (96-108) mmol/L Carbon Dioxide (22-29) mmol/L Anion Gap (12-20) BUN (9-16) mg/dL Creatinine (0.5-1.4) mg/dL Estim Creat Clear Calc Estimated GFR Random Glucose (60-115) mg/dL Calcium (8.4-10.2) mg/dL Ferritin (20-250) ng/mL Total Bilirubin (0.0-1.0) mg/dL AST (5-37) U/L ALT (0-40) U/L Alkaline Phosphatase (39-117) U/L Total Protein (6.5-8.0) g/dL Albumin (3.5-5.0) g/dL Stool Occult Blood POSITIVE (NEGATIVE) Blood Type Antibody Screen Crossmatch Discharge Plan Discharge Clinical Impression: Severe anemia, GI (gastrointestinal bleed) Patient Disposition: Admitted As Inpatient
[2022-03-12 21:02] LABS: OBS Int Ctl Valid YES; OBS1 POSITIVE (NEGATIVE)
[2022-03-12] MEDS: Pantoprazole Sodium 40 MG/10 ML VIAL 80 MG IVPUSH (21:03)
--- NOTE | 2022-03-12 22:07 | PHA.MEDREC ---
Pharmacy Consult ? Medication Reconciliation Pharmacy has completed the medication reconciliation.
--- NOTE | 2022-03-12 23:31 | PM.IMHP ---
History of Present Illness Date of Service: 03/12/22 Chief Complaint: Abnormal labs 67-year-old male with past medical history of obesity, hypertension, sleep apnea on CPAP, chronic diastolic heart failure, diabetes, CKD, who presents to the hospital with complaints of abnormal labs done by PCP. Patient reports that he had routine lab work done which showed significant anemia. Patient reports that he has been feeling exhausted, fatigued, significant shortness of breath on minimal exertion, for the past 4-5 days. He has also noticed black stools for the past 5 days But did not think much of it. He denies any constipation, no blood in urine, no bright blood in the stool. no bloody vomiting. Patient reports some dizziness arm some occasions, no palpitations. patient denies using any [id number] analgesics including NSAIDs. He denies any chest pain, no change in vision, no headache, no abdominal pain, no urinary symptoms and no lower extremity edema. On arrival to the ED patient's vitals were unremarkable except for slightly elevated blood pressure Labs reviewed were significant for a hemoglobin of 5.3, hematocrit of 18.2, creatinine of 3.54 with a baseline of 2.51, stool guaiac positive patient ordered 2 units of PRBC by ED physician and will be admitted for further management Review of Systems Review of Systems: Yes all other systems are reviewed and are negative [facility] Medical History Abnormal exercise tolerance test Chronic diastolic heart failure CKD (chronic kidney disease) Diabetes Hypertension Obesity Patellofemoral arthritis of left knee Sleep apnea Family History Father No problems noted. Mother Diabetes Paternal Aunt Anesthesia complication Surgical History H/O nasal septoplasty History of adjustable gastric banding Hx of colonoscopy with polypectomy S/P cardiac cath Social History Alcohol intake: never Patient Tobacco Use Status: Never used Tobacco Use of substances other than those prescribed or required for medical reasons: No Advance Directives: No Advance Directives Information Provided: Yes Current occupational status: retired Current occupation: rt hand Meds Allergies Allergy/AdvReac Type Severity Reaction Status Date / Time allopurinol [ALLOPURINOL] Allergy Intermediate HIVES, rash Verified 07/18/21 16:02 DUST Allergy Mild Cough Uncoded 09/25/20 10:52 Home Medications Medication Instructions Recorded Confirmed Last Taken Type atorvastatin 40 mg tablet (Lipitor) 40 mg PO BEDTIME 07/26/20 03/12/22 03/11/22 History carvedilol 25 mg tablet 25 mg PO BID 07/26/20 03/12/22 03/12/22 History isosorbide mononitrate 120 mg 1 tab PO DAILY 09/17/20 03/12/22 03/12/22 History tablet,extended release 24 hr multivitamin 1 tab PO DAILY 09/17/20 03/12/22 03/12/22 History sertraline 100 mg tablet 2 tab PO DAILY 09/17/20 03/12/22 03/12/22 History amlodipine 10 mg tablet 10 mg PO DAILY 02/13/21 03/12/22 03/12/22 History cholecalciferol (vitamin D3) 25 2 tab PO DAILY 03/12/22 03/12/22 03/12/22 History mcg (1,000 unit) tablet (Vitamin D3) furosemide 80 mg tablet 1 tab PO BID 03/12/22 03/12/22 03/12/22 History insulin NPH-regular 70-30 U-100 20 unit subcut BEDTIME 03/12/22 03/12/22 03/11/22 History insulin 100 unit/mL subcutaneous pen (Humulin 70/30 U-100 KwikPen) insulin NPH-regular 70-30 U-100 40 unit subcut DAILY 03/12/22 03/12/22 03/12/22 History insulin 100 unit/mL subcutaneous pen (Humulin 70/30 U-100 KwikPen) lamotrigine 25 mg tablet 3 tab PO DAILY 03/12/22 03/12/22 03/12/22 History Physical Exam Vital Signs and Narrative: Vital Signs: Last Vital Signs Temp 98.7 F 03/12/22 21:55 Pulse 70 03/12/22 21:55 Resp 19 03/12/22 21:55 BP 174/88 H 03/12/22 21:55 Pulse Ox 98 03/12/22 20:17 O2 Del Method 03/12/22 20:17 BMI result Body Mass Index 39.2 Const: Other: patient appears in no acute distress, he is comfortable, able to give history accurately General: cooperative and no acute distress Orientation/consciousness: patient oriented x3 Eyes: General: appearance normal, both eyes and all related structures Resp: Effort & Inspection: normal respiratory effort Auscultation: clear to auscultation bilaterally Cardio: Rate: regular rate Rhythm: regular rhythm GI: Other: abdomen is soft, nontender, no guarding or rebound Palpation (GI): Soft to palpation Auscultation: normal bowel sounds Skin: General skin exam: no rashes or lesions noted Neuro: General: patient oriented x3 Cognition (Neuro): normal cognition Extrem: General: Yes normal to inspection and Yes no pedal edema Results Labs CBC and Chem 7: 03/13/22 04:29 03/13/22 04:29 Labs: Laboratory Results - last 24 hr 03/12/22 03/12/22 03/12/22 19:21 19:21 19:21 MCV 79.1 L MCH 23.0 L MCHC 29.1 L RDW 14.5 Plt Count 124 L MPV 10.5 Immature Gran % (Auto) 0.6 H Neut % (Auto) 76.1 H Lymph % (Auto) 10.5 L [place] % (Auto) 10.7 Eos % (Auto) 1.7 Baso % (Auto) 0.4 Lymph # (Auto) 0.5 L [place] # (Auto) 0.5 Eos # (Auto) 0.1 Baso # (Auto) 0.0 Abs Immat Gran (auto) 0.03 Absolute Neuts (auto) 3.6 Absolute Nucleated RBC 0.000 Nucleated RBC % (auto) 0.0 Anion Gap 14 Estim Creat Clear Calc 24.0 Estimated GFR 17 Random Glucose 193 H D Calcium 8.5 D Total Bilirubin 0.4 AST 20 ALT 15 Alkaline Phosphatase 102 D Total Protein 5.6 L Albumin 3.7 Stool Occult Blood Blood Type O Positive Antibody Screen NEGATIVE Crossmatch See Detail 03/12/22 20:58 MCV MCH MCHC RDW Plt Count MPV Immature Gran % (Auto) Neut % (Auto) Lymph % (Auto) [place] % (Auto) Eos % (Auto) Baso % (Auto) Lymph # (Auto) [place] # (Auto) Eos # (Auto) Baso # (Auto) Abs Immat Gran (auto) Absolute Neuts (auto) Absolute Nucleated RBC Nucleated RBC % (auto) Anion Gap Estim Creat Clear Calc Estimated GFR Random Glucose Calcium Total Bilirubin AST ALT Alkaline Phosphatase Total Protein Albumin Stool Occult Blood POSITIVE Blood Type Antibody Screen Crossmatch Assessment and Plan (1) Severe anemia: Status: Acute (2) GI (gastrointestinal bleed): Status: Acute (3) Acute kidney injury superimposed on CKD: Status: Acute Plan this is a 59-year-old male with past medical history of diabetes, hypertension, sleep apnea among others who presents to the hospital with abnormal labs found to have significant anemia, as well as positive guaiac stool patient will be admitted for further management # acute severe anemia - symptomatic - likely secondary to GI bleed - patient reports black stools, guaiac positive - patient transfused 2 units of PRBC with appropriate response - follow CBC - transfuse with threshold of of 8 given history of coronary artery disease - will transfuse 1 more unit of PRBC - monitor volume status # GI bleed - upper versus lower GI bleed - abdomen is soft, nontender, no active bleed at this time, hemodynamically stable - patient given 2 units of PRBC - will consult GI - keep NPO # KYM on CKD - likely secondary to volume depletion - started on IV fluids - follow BMP - monitor volume status - hold Lasix as well as losartan in the setting of KYM # hypertension - stable - continue amlodipine, carvedilol, clonidine # diabetes - continue home insulin - will add low-dose sliding scale insulin - diabetic diet # CAD - denies any chest pain - continue home medications - hold losartan in the setting of KYM # history of CHF - not in volume overload - monitor volume status as patient receiving multiple blood transfusions as well as IV fluids for the KYM - might need resumption of his Lasix or doses of IV Lasix - monitor respiratory status # sleep apnea - CPAP at bedtime DVT prophylaxis: SCDs in the setting of GI bleed # given the symptomatic anemia, GI bleed, patient will require at minimum 2 night hospital stay for further management Quality Stroke Does the patient have a stroke diagnosis?: No VTE Prior VTE?: No VTE Risk Level:: Medical - moderate - high VTE Device Contraindication: N/A - Device Ordered VTE Drug Contraindication: Treatment Not Indicated
[2022-03-13] VITALS (28 sets, daily range): BP systolic 137–202; BP diastolic 54–100; PULSE 48–101; RESP 14–20; TEMP 36.1–36.9; O2SAT 93–99; BMI 40.8
[2022-03-13] MEDS: cloNIDine HCL 0.1 MG TABLET PO ×3 (00:04→20:36)
[2022-03-13 00:33] LABS: Ferritin 22 ng/mL (20-250)
[2022-03-13 00:36] LABS: Glucose, Whole Blood 170 mg/dL (60-115)
--- NOTE | 2022-03-13 00:48 | PC.NURSE ---
pt receiving his 2nd unit of rbc, no s/s of reaction noted.
[2022-03-13 02:09] LABS: COVID-19 Test Negative (Negative)
--- NOTE | 2022-03-13 02:37 | PC.NURSE ---
pt 2nd unit of prbc completed. no s/s of reaction, pt sleeping easy to arrouse. waiting admittion.
[2022-03-13] MEDS: Furosemide 20 MG/2 ML VIAL 10 MG IVPUSH (02:59)
[2022-03-13] MEDS: Lactated Ringers 1,000 ML 100 ML IVCONT (03:00)
[2022-03-13 04:55] LABS: MANUAL DIFF FLAG NO
[2022-03-13 04:56] LABS: Basophils Percent Auto 0.4 % (0-2); Eosinophils Absolute Auto 0.1 X10*3/uL (0.0-0.4); Eosinophils Percent Auto 2.1 % (0-4); Hematocrit 22.7 % (42.0-52.0); Imm Gran Abs Auto 0.05 X10*3/uL (0.00-0.03); Imm Gran Pct Auto 0.9 % (0.0-0.4); Lymphocytes Absolute Auto 0.5 X10*3/uL (1.2-4.9); Lymphocytes Percent Auto 9.2 % (20-40); Mean Corpuscular HGB Conc 30.8 g/dl (31.0-36.0); Mean Corpuscular Hemoglobin 24.6 pg (27.0-33.0); Mean Corpuscular Volume 79.9 fL (80.0-98.0); Monocytes Absolute Auto 0.7 X10*3/uL (0.1-1.2); Monocytes Percent Auto 11.5 % (2-11); Neutrophils Absolute Auto 4.3 x10*3/uL (2.0-8.3); Neutrophils Percent Auto 75.9 % (45-73); Platelet Count 113 X10*3/uL (160-400); Red Blood Count 2.84 X10*6/uL (4.60-5.80); Red Cell Distribution Width 14.6 % (11.0-16.0); White Blood Count 5.6 X10*3/uL (4.8-10.8)
[2022-03-13 05:12] LABS: Anion Gap 15 (12-20); Blood Urea Nitrogen 72 mg/dL (9-16); Calcium 8.6 mg/dL (8.4-10.2); Carbon Dioxide 23 mmol/L (22-29); Chloride 106 mmol/L (96-108); Creatinine Clr Calc Pharmacy 26.1; Estimated Glomerular Filt Rate 19; Glucose Random 181 mg/dL (60-115); Potassium 3.3 mmol/L (3.3-5.1); Sodium 141 mmol/L (135-145)
--- NOTE | 2022-03-13 06:48 | PC.NURSE ---
Hospitalist called reguarding bp. verbal order to given am medications now.
[2022-03-13 07:10] LABS: Glucose, Whole Blood 165 mg/dL (60-115)
--- NOTE | 2022-03-13 08:23 | PC.NURSE ---
report taken from vani palacios pt on cpap, sleeping, no apparent distress. here w gi bleed, receiving multiple units prbcs. vitals wnl. npo since midnight, planned procedure today. pt in good spirits, no questions about care plan at this time. third unit rbc infusing at this time.
[2022-03-13 08:36] LABS: Iron 258 mcg/dL (45-160); Percent Iron Saturation 69 % (15-50); Total Iron Binding Capacity 375 mcg/dL (228-428); Unsaturated Iron Binding 117 ug/dL
[2022-03-13] MEDS: Sertraline HCL 100 MG TABLET 200 MG PO (08:48)
[2022-03-13] MEDS: Pantoprazole Sodium 40 MG/10 ML VIAL IVPUSH ×2 (08:48→16:58)
[2022-03-13] MEDS: carvediloL 25 MG TABLET PO ×2 (08:48→20:36)
[2022-03-13] MEDS: amLODIPine Besylate 10 MG TABLET PO (08:48)
[2022-03-13] MEDS: Isosorbide Mononitrate 60 MG TAB.ER.24H 120 MG PO (08:49)
[2022-03-13] MEDS: lamoTRIgine 25 MG TABLET 75 MG PO (08:49)
[2022-03-13 08:55] LABS: Ferritin 23 ng/mL (20-250)
--- NOTE | 2022-03-13 09:06 | PM.EVENT ---
Event Note Date of Service: 03/13/22 Event Note: GI consult dictated Black stools with significant decrease in hematocrit. EGD planned for further evaluation. Mr. Yousif understands risks and benefits and agrees to proceed. Agree with transfusion, ppi, and monitor hematocrit.
--- NOTE | 2022-03-13 09:09 | MHC.SHP ---
Pre-Procedural Eval Section A Date of Service: 03/13/22 The patient is an INPATIENT: Yes Changes since office visit: No Cold of Flu in the past 2 weeks, No New Medical Problems, No Changes in Medication and No Patient answered all questions The History & Physical has been completed within 30 days and I have reviewed it.: Yes Section B Chief Complaint: GI Bleed, Acute Anemia Allergies: Allergies Allergy/AdvReac Type Severity Reaction Status Date / Time allopurinol [ALLOPURINOL] Allergy Intermediate HIVES, rash Verified 07/18/21 16:02 DUST Allergy Mild Cough Uncoded 09/25/20 10:52 Plan I have reviewed the history and physical and performed a pertinent physical examination on my patient. No changes have occurred unless specified.
[2022-03-13 09:46] LABS: Folate 18.9 ng/mL (> or = 4.0); Vitamin B12 642 pg/mL (200-900)
--- NOTE | 2022-03-13 10:00 | PC.NURSE ---
pt off unit to [facility]
--- NOTE | 2022-03-13 10:06 | P.CONAN_ITS ---
HPI - Anesthesia Eval Consult details Narrative: 67 male presenting with GI bleed here for EGD. Status 3u pRBC, last Hb 7.0. Severe STEPHON on CPAP. Denies CP/CAD hx. PMFSH Active Problems Active Problems: All Active Problems (Updated 03/13/22 @ 06:33 by Romulo Sorensen MD) Acute kidney injury superimposed on CKD (Acute) Severe anemia (Acute) GI (gastrointestinal bleed) (Acute) Hematoma and contusion (Acute) Knee injury (Acute) KYM (acute kidney injury) (Acute) Dyspnea (Acute) Past Medical History Medical History Abnormal exercise tolerance test Chronic diastolic heart failure CKD (chronic kidney disease) Diabetes Hypertension Obesity Patellofemoral arthritis of left knee Sleep apnea Family History Family History Father No problems noted. Mother Diabetes Paternal Aunt Anesthesia complication Family history of problems with anesthesia: No Surgical History Surgical History H/O nasal septoplasty History of adjustable gastric banding Hx of colonoscopy with polypectomy S/P cardiac cath History of Problems with Anesthesia: No Social History Social History Alcohol intake: never Patient Tobacco Use Status: Never used Tobacco Second Hand Smoke Exposure: No Use of substances other than those prescribed or required for medical reasons: No Are you DNR?: No Advance Directives: No Advance Directives Information Provided: Yes Advance Directives on File: No Current occupational status: retired Current occupation: rt hand Meds Allergies Allergy/AdvReac Type Severity Reaction Status Date / Time allopurinol [ALLOPURINOL] Allergy Intermediate HIVES, rash Verified 07/18/21 16:02 DUST Allergy Mild Cough Uncoded 09/25/20 10:52 Active Medications: Current Medications Acetaminophen (Acetaminophen 325 Mg Tablet) 650 mg PO Q6H PRN PRN Reason: Pain, Mild (Pain Scale 1-3) Amlodipine Besylate (Amlodipine Besylate 10 Mg Tablet) 10 mg PO DAILY [facility]A; Protocol Last Admin: 06/16/22 08:48 Dose: 10 mg Atorvastatin Calcium (Atorvastatin Calcium 40 Mg Tablet) 40 mg PO BEDTIME [facility] Carvedilol (Carvedilol 25 Mg Tablet) 25 mg PO BID [facility]; Protocol Last Admin: 03/13/22 08:48 Dose: 25 mg Clonidine HCl (Clonidine Hcl 0.1 Mg Tablet) 0.1 mg PO BID [facility]; Protocol Last Admin: 03/13/22 08:49 Dose: 0.1 mg Insulin Glargine (Insulin Glargine,Hum.Rec.Anlog 100 Unit/Ml 10 Ml Vial) 11 unit SUBCUT BEDTIME [facility] Insulin Glargine (Insulin Glargine,Hum.Rec.Anlog 100 Unit/Ml 10 Ml Vial) 22 unit SUBCUT DAILY [facility] Last Admin: 03/13/22 08:49 Dose: Not Given Insulin Human Lispro (Insulin Lispro 100 Unit/Ml 3 Ml Vial) 6 unit SUBCUT TIDAC [facility] Last Admin: 03/13/22 07:01 Dose: Not Given Isosorbide Mononitrate (Isosorbide Mononitrate 60 Mg Tab.Er.24h) 120 mg PO DAILY [facility]; Protocol Last Admin: 03/13/22 08:49 Dose: 120 mg Lamotrigine (Lamotrigine 25 Mg Tablet) 75 mg PO DAILY [facility] Last Admin: 03/13/22 08:49 Dose: 75 mg Multivitamins/Vitamin C (Multivitamin Tablet) 1 tab PO DAILY [facility] Last Admin: 03/13/22 08:49 Dose: Not Given Ondansetron HCl (Ondansetron Hcl 4 Mg/2 Ml Vial) 4 mg IVPUSH Q8H PRN PRN Reason: Nausea and Vomiting Pantoprazole Sodium (Pantoprazole Sodium 40 Mg/10 Ml Vial) 40 mg IVPUSH BID@0630,1630 [facility] Last Admin: 03/13/22 08:48 Dose: 40 mg Sertraline HCl (Sertraline Hcl 100 Mg Tablet) 200 mg PO DAILY [facility] Last Admin: 03/13/22 08:48 Dose: 200 mg Sodium Chloride (0.9 % Sodium Chloride Flush 3 Ml Syringe) [facility] Last Admin: 03/13/22 07:01 Dose: Not Given Vitamin D (Cholecalciferol (Vitamin D3) 25 Mcg Tablet) 50 mcg PO DAILY [facility] Last Admin: 03/13/22 08:49 Dose: Not Given Home Medications Medication Instructions Recorded Confirmed Last Taken Type atorvastatin 40 mg tablet (Lipitor) 40 mg PO BEDTIME 07/26/20 03/12/22 03/11/22 History carvedilol 25 mg tablet 25 mg PO BID 07/26/20 03/12/22 03/12/22 History isosorbide mononitrate 120 mg 1 tab PO DAILY 09/17/20 03/12/22 03/12/22 History tablet,extended release 24 hr multivitamin 1 tab PO DAILY 09/17/20 03/12/22 03/12/22 History sertraline 100 mg tablet 2 tab PO DAILY 09/17/20 03/12/22 03/12/22 History amlodipine 10 mg tablet 10 mg PO DAILY 02/13/21 03/12/22 03/12/22 History cholecalciferol (vitamin D3) 25 2 tab PO DAILY 03/12/22 03/12/22 03/12/22 History mcg (1,000 unit) tablet (Vitamin D3) furosemide 80 mg tablet 1 tab PO BID 03/12/22 03/12/22 03/12/22 History insulin NPH-regular 70-30 U-100 20 unit subcut BEDTIME 03/12/22 03/12/22 03/11/22 History insulin 100 unit/mL subcutaneous pen (Humulin 70/30 U-100 KwikPen) insulin NPH-regular 70-30 U-100 40 unit subcut DAILY 03/12/22 03/12/22 03/12/22 History insulin 100 unit/mL subcutaneous pen (Humulin 70/30 U-100 KwikPen) lamotrigine 25 mg tablet 3 tab PO DAILY 03/12/22 03/12/22 03/12/22 History Exam Exam Date and Time: March 13, 2022 1006 Height,Weight and Vital Signs: Height 5 ft 7 in Weight 250 lb 2.49 oz Last Vital Signs Temp 97.3 F 03/13/22 09:56 Pulse 59 03/13/22 09:56 Resp 16 03/13/22 09:56 BP 164/81 H 03/13/22 09:56 Pulse Ox 96 03/13/22 09:56 O2 Del Method 03/13/22 09:56 Pertinent Lab Results Pertinent Lab Results: Laboratory Tests 03/12/22 03/12/22 03/12/22 19:21 19:21 19:21 WBC 4.8 RBC 2.30 L D Hgb 5.3 L* D Hct 18.2 L* D MCV 79.1 L MCH 23.0 L MCHC 29.1 L RDW 14.5 Plt Count 124 L MPV 10.5 Immature Gran % (Auto) 0.6 H Neut % (Auto) 76.1 H Lymph % (Auto) 10.5 L [place] % (Auto) 10.7 Eos % (Auto) 1.7 Baso % (Auto) 0.4 Lymph # (Auto) 0.5 L [place] # (Auto) 0.5 Eos # (Auto) 0.1 Baso # (Auto) 0.0 Abs Immat Gran (auto) 0.03 Absolute Neuts (auto) 3.6 Absolute Nucleated RBC 0.000 Nucleated RBC % (auto) 0.0 Sodium 141 Potassium 4.1 Chloride 104 Carbon Dioxide 27 Anion Gap 14 BUN 27 H D Creatinine 3.54 H Estim Creat Clear Calc 24.0 Estimated GFR 17 POC Glucose Random Glucose 193 H D Calcium 8.5 D Iron TIBC % Saturation Unsat Iron Binding Ferritin 22 Total Bilirubin 0.4 AST 20 ALT 15 Alkaline Phosphatase 102 D Total Protein 5.6 L Albumin 3.7 Vitamin B12 Folate Stool Occult Blood COVID-19 ([facility]) COVID-[employer] Blood Type O Positive Antibody Screen NEGATIVE Crossmatch See Detail 03/12/22 03/12/22 03/12/22 20:58 23:52 23:58 WBC RBC Hgb Hct MCV MCH MCHC RDW Plt Count MPV Immature Gran % (Auto) Neut % (Auto) Lymph % (Auto) [place] % (Auto) Eos % (Auto) Baso % (Auto) Lymph # (Auto) [place] # (Auto) Eos # (Auto) Baso # (Auto) Abs Immat Gran (auto) Absolute Neuts (auto) Absolute Nucleated RBC Nucleated RBC % (auto) Sodium Potassium Chloride Carbon Dioxide Anion Gap BUN Creatinine Estim Creat Clear Calc Estimated GFR POC Glucose 170 H Random Glucose Calcium Iron TIBC % Saturation Unsat Iron Binding Ferritin Total Bilirubin AST ALT Alkaline Phosphatase Total Protein Albumin Vitamin B12 642 Folate 18.9 Stool Occult Blood POSITIVE COVID-19 ([facility]) COVID-19 [employer] Blood Type Antibody Screen Crossmatch 03/13/22 03/13/22 03/13/22 01:49 04:29 04:29 WBC 5.6 RBC 2.84 L D Hgb 7.0 L* D Hct 22.7 L D MCV 79.9 L MCH 24.6 L MCHC 30.8 L RDW 14.6 Plt Count 113 L MPV 11.0 Immature Gran % (Auto) 0.9 H Neut % (Auto) 75.9 H Lymph % (Auto) 9.2 L [place] % (Auto) 11.5 H Eos % (Auto) 2.1 Baso % (Auto) 0.4 Lymph # (Auto) 0.5 L [place] # (Auto) 0.7 Eos # (Auto) 0.1 Baso # (Auto) 0.0 Abs Immat Gran (auto) 0.05 H Absolute Neuts (auto) 4.3 Absolute Nucleated RBC 0.000 Nucleated RBC % (auto) 0.0 Sodium 141 Potassium 3.3 Chloride 106 Carbon Dioxide 23 Anion Gap 15 BUN 72 H D Creatinine 3.25 H Estim Creat Clear Calc 26.1 Estimated GFR 19 POC Glucose Random Glucose 181 H Calcium 8.6 Iron 258 H TIBC 375 % Saturation 69 H Unsat Iron Binding 117 Ferritin 23 Total Bilirubin AST ALT Alkaline Phosphatase Total Protein Albumin Vitamin B12 Folate Stool Occult Blood COVID-19 ([facility]) Negative COVID-19 [employer] See Note Blood Type Antibody Screen Crossmatch 03/13/22 07:06 WBC RBC Hgb Hct MCV MCH MCHC RDW Plt Count MPV Immature Gran % (Auto) Neut % (Auto) Lymph % (Auto) [place] % (Auto) Eos % (Auto) Baso % (Auto) Lymph # (Auto) [place] # (Auto) Eos # (Auto) Baso # (Auto) Abs Immat Gran (auto) Absolute Neuts (auto) Absolute Nucleated RBC Nucleated RBC % (auto) Sodium Potassium Chloride Carbon Dioxide Anion Gap BUN Creatinine Estim Creat Clear Calc Estimated GFR POC Glucose 165 H Random Glucose Calcium Iron TIBC % Saturation Unsat Iron Binding Ferritin Total Bilirubin AST ALT Alkaline Phosphatase Total Protein Albumin Vitamin B12 Folate Stool Occult Blood COVID-19 ([facility]) COVID-19 [employer] Blood Type Antibody Screen Crossmatch Airway Mallampati Class: IV TM Dist: >3cm Neck ROM: Full Loose/Missing/Broken Teeth: Yes Assessment and Plan Assessment Anesthesia Assessment: Anesthesia Plan Discussed and Chart Reviewed Final Anesthetic Review Family History of Problems with Anesthesia: No History of Problems with Anesthesia: No ASA Class: III and Emergency Final Preanesthetic Review: No Changes in Pt Med Stat, Meds/Allgs Chart Reviewed, Consent Obtained/Reviewed and Anes Risks/Benef Reviewed Patient Risk: High Procedure Risk: Low Anesthetic Plan Anesthetic Plan: MAC: Disposition: Standard PACU
[2022-03-13 10:08] LABS: Glucose, Whole Blood 174 mg/dL (60-115)
--- NOTE | 2022-03-13 10:44 | CONS_ITS ---
DATE OF SERVICE: 03/13/2022 REFERRING PHYSICIAN: Romulo Sorensen REASON FOR CONSULTATION: Black stools and anemia. HISTORY OF PRESENT ILLNESS: The patient is a pleasant 67-year-old man, who was advised to come to the emergency room after lab work showed a significant anemia. He reports black stools over a period of about 5 days with associated shortness of breath and early satiety. He was seen by his entry level accountant and lab work showed a significant anemia for which he was advised to come to the emergency room. Stools have been formed without diarrhea. He has had no nausea, vomiting, or dysphagia. He denies use of NSAIDs and has not been on steroids. He did have a fistula placed approximately a week ago in his left forearm for eventual dialysis. In the Emergency Department, he was evaluated and rectal exam disclosed dark stool that was occult blood positive. Hematocrit was 18.2 with an elevated BUN. He received 2 units of packed red blood cells overnight with a followup hematocrit improved to 22.7, and is currently receiving the 3rd of 4 total units. PAST MEDICAL HISTORY: 1. Colon polyps. Last colonoscopy 09/17, tubular adenoma. 2. 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 3. Anemia. 4. Hypertension. 5. Sleep apnea, on CPAP. 6. Elevated body mass index. 7. Diabetes mellitus. 8. Chronic diastolic heart failure. 9. Arthritis. CURRENT MEDICATIONS: His current medication list is reviewed in the chart. He has not been on blood thinners or NSAIDs. ALLERGIES: ALLOPURINOL. FAMILY HISTORY: This is reviewed with the patient and is negative for upper GI malignancy. SOCIAL HISTORY: There is no current tobacco, alcohol, or substance abuse. REVIEW OF SYSTEMS: SKIN: No pruritus. HEENT: Negative. CARDIOPULMONARY: No shortness of breath or chest pain. GASTROINTESTINAL: As above. GENITOURINARY: Negative. NEUROPSYCHIATRIC: Negative. PHYSICAL EXAMINATION: GENERAL: Shows a pleasant male, lying comfortably in bed. VITAL SIGNS: Reviewed in the electronic medical record and are stable. SKIN: Pale. HEENT: Shows no scleral icterus. NECK: Without lymphadenopathy or thyromegaly. LUNGS: Clear. HEART: Shows a regular rate and rhythm. S1, S2. No murmur. ABDOMEN: Soft without focal masses or tenderness. Bowel sounds are present. No organomegaly is noted. EXTREMITIES: Without edema. LABORATORY DATA: Reviewed. IMPRESSION: Anemia with black stools. This appears consistent with upper GI blood loss. His most recent hematocrit in the electronic record in September was 30, so he has had a significant drop. He does not appear to be actively bleeding at this time. I have recommended upper endoscopy for further evaluation. I have discussed risks and benefits of endoscopy with him. He understands these and agrees to proceed. In the interim, I agree with transfusing him as you are doing and monitoring his hematocrit. Thanks for asking me to see him. I will follow him in the hospital with you. MD MATRITA Izquierdo/JANA / [phone]
--- NOTE | 2022-03-13 11:29 | P.BOP_ITS ---
Brief Operative Note Date of Service: 03/13/22 Pre-op diagnosis: gi bleed Post-op diagnosis: same (erosive esophagitis, hiatal hernia, gastritis) Surgeon: Seven Franco Anesthesia: MAC Was an Dental Instrument Maker used for this Procedure?: No Estimated blood loss (mL): 2 Pathology: other (antral biopsies) Condition: stable Disposition: PACU
--- NOTE | 2022-03-13 11:30 | PM.EVENT ---
Event Note Date of Service: 03/13/22 Event Note: EGD note dictated no active bleeding erosive esophagitis over last 2 cm of esophagus small hiatal hernia patchy gastritis rec advance diet bid ppi x 2 weeks then daily f/u bx results.
[2022-03-13] MEDS: Lactated Ringers 1,000 ML 50 ML IVCONT ×2 (13:12→16:58)
[2022-03-13 13:15] LABS: Glucose, Whole Blood 194 mg/dL (60-115)
[2022-03-13] MEDS: Insulin Lispro 100 UNIT/ML 3 ML VIAL 6 UNIT SUBCUT ×2 (13:44→17:31)
--- NOTE | 2022-03-13 13:47 | HO.PM.IMPN ---
Subjective Subjective Date of Service: 03/13/22 Interval History: cc: weakness, sob, anemia on labs interval history:denies improvement after transfusion Respiratory Respiratory: Reports no additional respiratory complaints Gastrointestinal Gastrointestinal: Reports no additional gastrointestinal complaints Physical Exam Vital Signs: Vital Signs: Last Vital Signs Temp 97.6 F 03/13/22 13:35 Pulse 54 03/13/22 13:35 Resp 17 03/13/22 13:35 BP 148/73 H 03/13/22 13:35 Pulse Ox 97 03/13/22 13:11 O2 Del Method 03/13/22 13:11 O2 Flow Rate 2 03/13/22 13:11 BMI result Body Mass Index 39.2 General: AO X 3, no acute distress Resp: CTA bilateral, no accessory muscles used CVS: S1,S2,RRR GI: soft, non tender, non distended Neuro: motor grossly intact, alert Psych: appropriate affect, appropriate insight Objective Data Active Medications Acetaminophen (Acetaminophen 325 Mg Tablet) 650 mg PO Q6H PRN PRN Reason: Pain, Mild (Pain Scale 1-3) Amlodipine Besylate (Amlodipine Besylate 10 Mg Tablet) 10 mg PO DAILY [facility]; Protocol Last Admin: 03/13/22 08:48 Dose: 10 mg Documented By: AZIZA Atorvastatin Calcium (Atorvastatin Calcium 40 Mg Tablet) 40 mg PO BEDTIME SHIVA Carvedilol (Carvedilol 25 Mg Tablet) 25 mg PO BID [facility]; Protocol Last Admin: 03/13/22 08:48 Dose: 25 mg Documented By: AZIZA Clonidine HCl (Clonidine Hcl 0.1 Mg Tablet) 0.1 mg PO BID [facility]; Protocol Last Admin: 03/13/22 08:49 Dose: 0.1 mg Documented By: AZIZA Lactated Ringer's (Lr) 1,000 mls @ 50 mls/hr IVCONT .Q20H [facility] Last Admin: 03/13/22 13:12 Dose: 50 mls/hr Documented By: KYM Insulin Glargine (Insulin Glargine,Hum.Rec.Anlog 100 Unit/Ml 10 Ml Vial) 11 unit SUBCUT BEDTIME SHIVA Insulin Glargine (Insulin Glargine,Hum.Rec.Anlog 100 Unit/Ml 10 Ml Vial) 22 unit SUBCUT DAILY [facility] Last Admin: 03/13/22 08:49 Dose: Not Given Documented By: AZIZA Non-Admin Reason: NPO Insulin Human Lispro (Insulin Lispro 100 Unit/Ml 3 Ml Vial) 6 unit SUBCUT TIDAC [facility] Last Admin: 03/13/22 13:44 Dose: 6 unit Documented By: KYM Isosorbide Mononitrate (Isosorbide Mononitrate 60 Mg Tab.Er.24h) 120 mg PO DAILY [facility]; Protocol Last Admin: 03/13/22 08:49 Dose: 120 mg Documented By: AZIZA Lamotrigine (Lamotrigine 25 Mg Tablet) 75 mg PO DAILY [facility] Last Admin: 03/13/22 08:49 Dose: 75 mg Documented By: AZIZA Multivitamins/Vitamin C (Multivitamin Tablet) 1 tab PO DAILY [facility] Last Admin: 03/13/22 08:49 Dose: Not Given Documented By: AZIZA Non-Admin Reason: NPO Ondansetron HCl (Ondansetron Hcl 4 Mg/2 Ml Vial) 4 mg IVPUSH Q8H PRN PRN Reason: Nausea and Vomiting Pantoprazole Sodium (Pantoprazole Sodium 40 Mg/10 Ml Vial) 40 mg IVPUSH BID@0630,1630 [facility] Last Admin: 03/13/22 08:48 Dose: 40 mg Documented By: AZIZA Sertraline HCl (Sertraline Hcl 100 Mg Tablet) 200 mg PO DAILY [facility] Last Admin: 03/13/22 08:48 Dose: 200 mg Documented By: AZIZA Sodium Chloride (0.9 % Sodium Chloride Flush 3 Ml Syringe) 3 ml IVFLUSH QSHIFT [facility] Last Admin: 03/13/22 07:01 Dose: Not Given Documented By: AZIZA Non-Admin Reason: IV Running Vitamin D (Cholecalciferol (Vitamin D3) 25 Mcg Tablet) 50 mcg PO DAILY [facility] Last Admin: 03/13/22 08:49 Dose: Not Given Documented By: AZIZA Non-Admin Reason: NPO Labs CBC & Chem 7: 03/13/22 04:29 03/13/22 04:29 Labs: Laboratory Results - last 24 hr 03/12/22 03/12/22 03/12/22 19:21 19:21 19:21 MCV 79.1 L MCH 23.0 L MCHC 29.1 L RDW 14.5 Plt Count 124 L MPV 10.5 Immature Gran % (Auto) 0.6 H Neut % (Auto) 76.1 H Lymph % (Auto) 10.5 L [place] % (Auto) 10.7 Eos % (Auto) 1.7 Baso % (Auto) 0.4 Lymph # (Auto) 0.5 L [place] # (Auto) 0.5 Eos # (Auto) 0.1 Baso # (Auto) 0.0 Abs Immat Gran (auto) 0.03 Absolute Neuts (auto) 3.6 Absolute Nucleated RBC 0.000 Nucleated RBC % (auto) 0.0 Smear Path Review Anion Gap 14 Estim Creat Clear Calc 24.0 Estimated GFR 17 POC Glucose Random Glucose 193 H D Calcium 8.5 D Iron TIBC % Saturation Unsat Iron Binding Ferritin 22 Total Bilirubin 0.4 AST 20 ALT 15 Alkaline Phosphatase 102 D Total Protein 5.6 L Albumin 3.7 Vitamin B12 Folate Stool Occult Blood COVID-19 ([facility]) COVID-19 [employer] Com Blood Type O Positive Antibody Screen NEGATIVE Crossmatch See Detail 03/12/22 03/12/22 03/12/22 20:58 23:52 23:58 MCV MCH MCHC RDW Plt Count MPV Immature Gran % (Auto) Neut % (Auto) Lymph % (Auto) [place] % (Auto) Eos % (Auto) Baso % (Auto) Lymph # (Auto) [place] # (Auto) Eos # (Auto) Baso # (Auto) Abs Immat Gran (auto) Absolute Neuts (auto) Absolute Nucleated RBC Nucleated RBC % (auto) Smear Path Review Anion Gap Estim Creat Clear Calc Estimated GFR POC Glucose 170 H Random Glucose Calcium Iron TIBC % Saturation Unsat Iron Binding Ferritin Total Bilirubin AST ALT Alkaline Phosphatase Total Protein Albumin Vitamin B12 642 Folate 18.9 Stool Occult Blood POSITIVE COVID-19 ([facility]A) COVID-19 [employer] Blood Type Antibody Screen Crossmatch 03/13/22 03/13/22 03/13/22 01:49 04:29 04:29 MCV 79.9 L MCH 24.6 L MCHC 30.8 L RDW 14.6 Plt Count 113 L MPV 11.0 Immature Gran % (Auto) 0.9 H Neut % (Auto) 75.9 H Lymph % (Auto) 9.2 L [place] % (Auto) 11.5 H Eos % (Auto) 2.1 Baso % (Auto) 0.4 Lymph # (Auto) 0.5 L [place] # (Auto) 0.7 Eos # (Auto) 0.1 Baso # (Auto) 0.0 Abs Immat Gran (auto) 0.05 H Absolute Neuts (auto) 4.3 Absolute Nucleated RBC 0.000 Nucleated RBC % (auto) 0.0 Smear Path Review Anion Gap 15 Estim Creat Clear Calc 26.1 Estimated GFR 19 POC Glucose Random Glucose 181 H Calcium 8.6 Iron 258 H TIBC 375 % Saturation 69 H Unsat Iron Binding 117 Ferritin 23 Total Bilirubin AST ALT Alkaline Phosphatase Total Protein Albumin Vitamin B12 Folate Stool Occult Blood COVID-19 ([facility]) Negative COVID-19 Clin Com See Note Blood Type Antibody Screen Crossmatch 03/13/22 03/13/22 03/13/22 07:06 10:03 13:11 MCV MCH MCHC RDW Plt Count MPV Immature Gran % (Auto) Neut % (Auto) Lymph % (Auto) [place] % (Auto) Eos % (Auto) Baso % (Auto) Lymph # (Auto) [place] # (Auto) Eos # (Auto) Baso # (Auto) Abs Immat Gran (auto) Absolute Neuts (auto) Absolute Nucleated RBC Nucleated RBC % (auto) Smear Path Review Anion Gap Estim Creat Clear Calc Estimated GFR POC Glucose 165 H 174 H 194 H Random Glucose Calcium Iron TIBC % Saturation Unsat Iron Binding Ferritin Total Bilirubin AST ALT Alkaline Phosphatase Total Protein Albumin Vitamin B12 Folate Stool Occult Blood COVID-19 ([facility]) COVID-19 Clin Com Blood Type Antibody Screen Crossmatch Assessment and Plan (1) Severe anemia: Status: Acute Plan 59M presented with weakness and sob, he was told to come in for outpatient labs showing severe anemia acute - subacute blood loss anemia EGD showed erosive esophagitis, unclear if accounts for entire etiology s/p 2 units, will order 3rd unit prbc follow up hgb ppi bid for 2 weeks then decrease to daily advance diet hebert on CKD IV recieved ivf, blood, holding lasix, monitor, holding arb htn amodipnie, clonidine, coreg holding arb for hebert DM in[place]lin CAD statin ,hold antiplateelt for gi bleed STEPHON cpap chronic diastolic chf holding lasix dvt prophylaxis - mechacnical due to gi bleed full code reason for continued hospitalization: transfusing, monitoring hgb for severe anemia Quality Stroke Does the patient have a stroke diagnosis?: No VTE Prior VTE?: No VTE Risk Level:: Medical - moderate - high VTE Device Contraindication: N/A - Device Ordered VTE Drug Contraindication: Treatment Not Indicated
--- NOTE | 2022-03-13 14:07 | PC.NURSE ---
Addendum entered by Cherry Garcia RN 03/13/22 14:09: Vitals remains stable, remains on 2 liters O2 now. Per MD Ceja orders okay for patient to eat, POC 194 received insulin per EMAR and ate food tolerating lunch well. Denies abd pain, N/V. Pt started 4th unit PRBC by this RN and tolerating well. No infusion reactions noted. Pt received 3rd unit prior to my shift starting, per SCRATCH POLISHER patient finished 3rd unit PRBC in the OR and had it removed in OR. SCRATCH POLISHER stated she did not have exat time it was taken down and believes it to be at 1130am. merchandise collector Bishop made aware of documenting. Per SCRATCH POLISHER pt received the entire 3rd unit without issues. Original Note: Pt assumed care at 11am. Upon coming onto shift pt not on unit due to patient being in short stay receding upper endo. Pt returned to unit metting pt for the first time at 1300. Pt alert and oriented x4, calm and cooperative. Pt denies pain. Pt denies SOB or diffiulty breathing.
--- NOTE | 2022-03-13 14:09 | OP_ITS ---
SURGEON: Seven Franco MD INDICATIONS: Upper GI bleeding. PREOPERATIVE DIAGNOSIS: POSTOPERATIVE DIAGNOSIS: PROCEDURE PERFORMED: Upper endoscopy with biopsy. ESTIMATED BLOOD LOSS: COMPLICATIONS: ANESTHESIA: Monitored anesthesia care. ASSISTANTS: SPECIMENS: DESCRIPTION OF PROCEDURE: History and physical performed. The risks and benefits of the procedure were explained to the patient. Informed consent was obtained. The patient was placed in the left lateral decubitus position. The Olympus video gastroscope was introduced into the esophagus, stomach, and duodenum. The examination was performed, and the scope was removed. He tolerated the procedure well but did require endotracheal intubation by the anesthesia providers after the case was initially begun as monitored anesthesia care. He was returned to the recovery room in stable condition. FINDINGS: 1. Esophagus: There was distal esophagitis with linear erosions just above the EG junction for approximately 1 to 2 cm. There was no bleeding. 2. Stomach: There was a small 3 cm hiatal hernia. There was mild patchy gastritis with linear streaks of erythema. There was no ulcer and there was no bleeding antral biopsies were obtained to evaluate for H pylori. 3. Duodenum: The bulb and second portion were normal. IMPRESSION: 1. Erosive esophagitis. 2. Hiatal hernia. 3. Gastritis. RECOMMENDATIONS: 1. Oral proton pump inhibitor b.i.d. for 2 weeks then once daily. 2. Advance diet. 3. Discharge when stable. MD MARTITA Izquierdo/JANA / [phone]
[2022-03-13] MEDS: 0.9 % Sodium Chloride Flush 3 ML SYRINGE IVFLUSH ×2 (15:32→20:36)
[2022-03-13 17:05] LABS: Glucose, Whole Blood 174 mg/dL (60-115)
[2022-03-13 20:31] LABS: Glucose, Whole Blood 157 mg/dL (60-115)
[2022-03-13] MEDS: Atorvastatin Calcium 40 MG TABLET PO (20:36)
[2022-03-13] MEDS: Insulin Glargine,Hum.rec.anlog 100 UNIT/ML 10 ML VIAL 11 UNIT SUBCUT (20:36)
[2022-03-14] VITALS (7 sets, daily range): BP systolic 119–186; BP diastolic 65–94; PULSE 56–65; RESP 17–18; TEMP 36–36.8; O2SAT 92–97
[2022-03-14] MEDS: Pantoprazole Sodium 40 MG/10 ML VIAL IVPUSH (05:22)
[2022-03-14 07:07] LABS: Hematocrit 25.8 % (42.0-52.0); Mean Corpuscular Hemoglobin 25.7 pg (27.0-33.0); Mean Platelet Volume 11.5 fL (9.4-12.4); Platelet Count 121 X10*3/uL (160-400); Red Blood Count 3.11 X10*6/uL (4.60-5.80); White Blood Count 6.6 X10*3/uL (4.8-10.8)
[2022-03-14 07:44] LABS: Anion Gap 16 (12-20); Blood Urea Nitrogen 59 mg/dL (9-16); Calcium 8.6 mg/dL (8.4-10.2); Carbon Dioxide 22 mmol/L (22-29); Chloride 105 mmol/L (96-108); Creatinine Clr Calc Pharmacy 27.4; Estimated Glomerular Filt Rate 20; Glucose Fasting 177 mg/dL (60-99); Potassium 3.8 mmol/L (3.3-5.1); Sodium 139 mmol/L (135-145)
[2022-03-14 07:55] LABS: Glucose, Whole Blood 152 mg/dL (60-115)
[2022-03-14] MEDS: Insulin Glargine,Hum.rec.anlog 100 UNIT/ML 10 ML VIAL 22 UNIT SUBCUT (08:09)
[2022-03-14] MEDS: Multivitamin TABLET 1 TAB PO (08:10)
[2022-03-14] MEDS: Isosorbide Mononitrate 60 MG TAB.ER.24H 120 MG PO (08:10)
[2022-03-14] MEDS: lamoTRIgine 25 MG TABLET 75 MG PO (08:10)
[2022-03-14] MEDS: Cholecalciferol (Vitamin D3) 25 MCG TABLET 50 MCG PO (08:10)
[2022-03-14] MEDS: amLODIPine Besylate 10 MG TABLET PO (08:10)
[2022-03-14] MEDS: Insulin Lispro 100 UNIT/ML 3 ML VIAL 6 UNIT SUBCUT ×2 (08:10→11:56)
[2022-03-14] MEDS: cloNIDine HCL 0.1 MG TABLET PO (08:10)
[2022-03-14] MEDS: carvediloL 25 MG TABLET PO (08:10)
[2022-03-14] MEDS: Sertraline HCL 100 MG TABLET 200 MG PO (08:10)
--- NOTE | 2022-03-14 10:05 | MHC.CM.PN ---
nurse human resources communications manager NOTE ELECTRONIC MEICAL RECOD REVIEWED ALONG WITH CASE DISCUSSED WITH STAFF NURSE AND THE HOSPTILIST , MET WITH PATIENT HE IS AWARE THAT HE WILL BE DISCHARGED HOME TODAY DISCHARGE PLAN HOME WHERE HE LIVES INDEPENDENTLY WITH HIS SISTER NO SERVICES PCP DR PARIS Dyer INSTRUCTED PATIENT TO CALL [facility]O APPOINTMENT TO BE SEEN POST [facility]OS[facility]LA DISCHARGE FOLLOW UP WITH HANDICAPPED TEACHER OUTPATIENT SELF RESUMPTION OF HIS MENTAL HEALTH COUNSELING AT [facility], HE OWNS HIS CPAP AND REPOTRS HE OWNS IT, HE DENIES ANY FINIANCIAL CONCERNS REGARDING OBTIANING HIS MEDICATIONS, TRANSPORTATION FAMILY COVID VAC X2 AND 1 BOOSTER MEDICARE IMM COOMPLETED
--- NOTE | 2022-03-14 11:23 | HO.POSTANES ---
Post Anesthesia Evaluation Post Anesthesia Evaluation Vital Signs: Vital Signs Temp Pulse Resp BP Pulse Ox O2 Del Method O2 Flow Rate 03/14/22 11:07 96.8 F 56 17 145/80 H 92 Room Air 03/14/22 09:42 119/65 03/14/22 07:48 98.1 F 61 17 186/94 H 92 Room Air 03/14/22 04:00 98.1 F 60 18 160/65 H 97 Nasal Cannula, CPAP 2 03/14/22 04:02 18 03/14/22 00:54 18 03/14/22 00:00 98.2 F 65 18 151/79 H 95 Nasal Cannula, CPAP 2 Anesthesia: Monitored Mental Status: Awake Pain Control: Satisfactory Nausea/Vomiting: None Hydration: Adequate Anesthesia-Related Issues: No Anes. Related Issues
--- NOTE | 2022-03-14 11:23 | PM.DS ---
DS: Providers Provider Date of Service: 03/14/22 Date of admission: 03/12/22 23:37 Primary care physician: Zainab Stewart MD Consults: 03/12/22 23:31 Consult to Gastroenterology Routine Consulting Provider: Thee Slade Reason for consultation: GI bleed Has provider been notified: No DS: Diagnosis Discharge Diagnosis (1) Severe anemia: Status: Acute (2) Acute kidney injury superimposed on CKD: Status: Acute (3) GI (gastrointestinal bleed): Status: Acute (4) Erosive gastritis: Status: Acute (5) Symptomatic anemia: Status: Acute DS: Summary Hospital Course Hospital Course: Admission note HPI ?67-year-old? male with past medical history of obesity, hypertension, sleep apnea on CPAP, chronic diastolic heart failure, diabetes,? CKD, who presents to the hospital with complaints of abnormal labs done by PCP.? Patient reports that he had routine lab work done which showed? significant anemia.? Patient reports that he has been feeling exhausted, fatigued, significant shortness of breath on minimal exertion, for the past 4-5 days.? He has also noticed black stools for the past 5 days? But did not think much of it.? He denies any constipation, no blood in urine, no bright blood in the stool. no bloody vomiting.? Patient reports some dizziness arm some occasions, no palpitations. patient denies using any [id number] analgesics including NSAIDs. ? He denies any chest pain, no change in vision, no headache, no abdominal pain, no urinary symptoms and no lower extremity edema.? On arrival to the ED patient's vitals were? unremarkable except for slightly elevated blood pressure Labs reviewed were significant for a hemoglobin of 5.3, hematocrit of 18.2, creatinine of 3.54 with a baseline of 2.51, stool guaiac positive ?patient ordered 2 units of PRBC by ED physician and will be admitted for further management Hospital course The patient was admitted to the hospital for evaluation of difficulty breathing and abnormal blood work as outpatient. Found to have significant drop in his blood level down to almost 5 requiring 3 units transfusion with improvement of hemoglobin to 8 close to his baseline . Started with IV ppi. The patient was evaluated by leaflet or newspaper deliverer as he went for EGD that showed erosive esophagitis and gastritis with no active bleeding. Hemoglobin remained stable around 8. No reported blood loss or melena noted. Diet advanced and tolerated well. To be discharged on b.i.d. PPIs. Noted to have acute kidney injury on top of CKD stage 4. Received IV fluid as Lasix and losartan were held with improvement of his creatinine level to almost 3 but not down to his baseline of 2.6. To resume his Lasix as discharge at hold restarting losartan over the weekend was a plan to repeat blood work early next week and follow-up with his PCP and leaflet or newspaper deliverer as outpatient. Start pantoprazole 40 mg twice daily for the next month then decrease it to 40 mg once a day Continue to hold losartan over the weekend and restart it by next week To repeat blood test next week Follow-up with Gastroenterology and PCP as outpatient. Time Spent with Patient Time attestation: Total time spent providing and/or coordinating discharge services: Discharge coordination time: Greater than 30 minutes Quality: Safe Use of Opioids Does Pt have an Active Cancer Diagnosis on the Problem List?: No Quality: Stroke Does the patient have a stroke diagnosis?: No Physical Exam Vital Signs: Vital Signs: Last Vital Signs Temp 96.8 F 03/14/22 11:07 Pulse 56 03/14/22 11:07 Resp 17 03/14/22 11:07 BP 145/80 H 03/14/22 11:07 Pulse Ox 92 03/14/22 11:07 O2 Del Method 03/14/22 11:07 O2 Flow Rate 2 03/14/22 04:00 BMI result Body Mass Index 40.8 Const: Other: Constitutional : Alert, oriented, not in distress Neck : Normal inspection, Supple Cardiovascular : RRR, no JVP, no lower extremity edema Respiratory : fair bilateral air entry, no crackles, wheezes or rhonchi Gastrointestinal: soft, lax, Normal bowel sounds, Non tender Skin : Warm, Dry Neurological : Alert & oriented x3, No focal deficit , CN 2-12 within normal DS: Data Data Completed and Pending Pending studies at discharge: Pending at discharge 03/13/22 11:09 Surgical [PTH] Routine Labs on day of discharge: Laboratory Results - last 24 hr 03/12/22 03/13/22 03/13/22 19:21 13:11 16:34 WBC RBC Hgb Hct MCV MCH MCHC RDW Plt Count MPV Absolute Nucleated RBC Nucleated RBC % (auto) Sodium Potassium Chloride Carbon Dioxide Anion Gap BUN Creatinine Estim Creat Clear Calc Estimated GFR POC Glucose 194 H 174 H Fasting Glucose Calcium Blood Type O Positive Antibody Screen NEGATIVE Crossmatch See Detail 03/13/22 03/14/22 03/14/22 19:38 06:05 06:05 WBC 6.6 RBC 3.11 L Hgb 8.0 L Hct 25.8 L MCV 83.0 MCH 25.7 L MCHC 31.0 RDW 16.0 Plt Count 121 L MPV 11.5 Absolute Nucleated RBC 0.000 Nucleated RBC % (auto) 0.0 Sodium 139 Potassium 3.8 Chloride 105 Carbon Dioxide 22 Anion Gap 16 BUN 59 H Creatinine 3.17 H Estim Creat Clear Calc 27.4 Estimated GFR 20 POC Glucose 157 H Fasting Glucose 177 H Calcium 8.6 Blood Type Antibody Screen Crossmatch 03/14/22 07:51 WBC RBC Hgb Hct MCV MCH MCHC RDW Plt Count MPV Absolute Nucleated RBC Nucleated RBC % (auto) Sodium Potassium Chloride Carbon Dioxide Anion Gap BUN Creatinine Estim Creat Clear Calc Estimated GFR POC Glucose 152 H Fasting Glucose Calcium Blood Type Antibody Screen Crossmatch Discharge Plan Discharge Patient Disposition: Home, Self-Care Discharge Diagnosis: Acute kidney injury Blood-loss anemia Erosive esophagitis Referrals: Zainab Stewart MD [Primary Care Provider] - 1 Week Discharge Medications: New pantoprazole 40 mg tablet,delayed release (DR/EC) 40 mg PO BID Qty: 60 1RF Continued losartan 100 mg tablet 100 mg PO DAILY Qty: 90 1RF clonidine HCl 0.1 mg tablet 0.1 mg PO BID Qty: 60 0RF Rx Instructions: Please call and schedule cardiology appt sertraline 100 mg tablet 2 tab PO DAILY isosorbide mononitrate 120 mg tablet extended release 24 hr 1 tab PO DAILY multivitamin Tablet 1 tab PO DAILY lamotrigine 25 mg tablet 3 tab PO DAILY furosemide 80 mg tablet 1 tab PO BID cholecalciferol (vitamin D3) [Vitamin D3] 25 mcg (1,000 unit) tablet 2 tab PO DAILY Humulin 70/30 U-100 KwikPen 100 unit/mL (70-30) Insulin Pen 20 unit SUBCUT BEDTIME Humulin 70/30 U-100 KwikPen 100 unit/mL (70-30) Insulin Pen 40 unit SUBCUT DAILY atorvastatin [Lipitor] 40 mg tablet 40 mg PO BEDTIME carvedilol 25 mg tablet 25 mg PO BID Rx Instructions: must administer with a meal/food amlodipine 10 mg tablet 10 mg PO DAILY Discharge Orders: Discharge Order (Routine); Ordered 03/14/22 Ordered By: Flakita Liu Diet: diabetic diet and low salt diet Activity on Discharge: As tolerated Stand Alone Forms: Patient Portal Discharge page Other Ambulatory Orders: Basic Metabolic Panel (Routine) Timeframe: 3 Days Facility: [facility] - Location: Laboratory Ordered By: Flakita Liu Complete Blood Count no Diff (Routine) Timeframe: 3 Days Facility: [facility] - Location: Laboratory Ordered By: Flakita Liu Care Plan Goals: Read below Health Concerns: Read below Plan of Treatment: Read below Assessment: You were admitted to the hospital for evaluation of weakness and difficulty breathing. Found to have severe anemia on your blood work with evidence of gastrointestinal bleeding. Received blood transfusion of total of 3 units and IV acid reducers as you were evaluated by leaflet or newspaper deliverer who did an upper endoscopy showing evidence of inflammation and erosions in your esophagus with no active bleeding noticed. You were also noticed to have acute kidney injury on top of chronic kidney disease believed to be secondary to dehydration and possible medications. Kidney function improved during the hospital stay but still higher than your baseline. Start pantoprazole 40 mg twice daily for the next month then decrease it to 40 mg once a day Continue to hold losartan over the weekend and restart it by next week To repeat blood test next week Follow-up with Gastroenterology and PCP as outpatient.
[2022-03-14 11:45] LABS: Glucose, Whole Blood 184 mg/dL (60-115)
== END 2022-03-14 13:52 | disposition home or self-care (01) | DRG 378 ==
LOC: HO.ED 21:30 → HO.EDOVER 23:41 → HO.S3 03-13 14:43
PROVIDERS: Internal Medicine; Internal Medicine Gastroenterology; Admitting Provider Internal Medicine; Emergency Provider Internal Medicine; PCP Internal Medicine; Visit Provider Student in an Organized Health Care Education/Training Program
PROC: 0DB78ZX Excision of Stomach, Pylorus, Via Natural or Artificial Opening Endoscopic, Diagnostic (ICD-10-PCS; principal; 2022-03-13 10:20)
DX: K29.71 Gastritis, unspecified, with bleeding (principal); I13.0 Hypertensive heart and chronic kidney disease with heart failure and stage 1 through stage 4 chronic kidney disease, or unspecified chronic kidney disease; N18.4 Chronic kidney disease, stage 4 (severe); N17.9 Acute kidney failure, unspecified; I50.32 Chronic diastolic (congestive) heart failure; Z68.41 Body mass index [BMI] 40.0-44.9, adult; D62 Acute posthemorrhagic anemia; K44.9 Diaphragmatic hernia without obstruction or gangrene; K22.11 Ulcer of esophagus with bleeding; E11.40 Type 2 diabetes mellitus with diabetic neuropathy, unspecified; M19.90 Unspecified osteoarthritis, unspecified site; D63.1 Anemia in chronic kidney disease; E11.22 Type 2 diabetes mellitus with diabetic chronic kidney disease; Z86.010 Personal history of colon polyps; G47.33 Obstructive sleep apnea (adult) (pediatric); I25.10 Atherosclerotic heart disease of native coronary artery without angina pectoris; E66.9 Obesity, unspecified; Z79.4 Long term (current) use of insulin; Z79.899 Other long term (current) drug therapy
CPT/HCPCS: 36415; 36430; 80048; 80053; 82272; 82607; 82728; 82746; 82947; 83540; 85025; 85027; 86850; 86900; 86901; 86923; 87635; 88305; 88342; 93005; 94660; 96374; 96375; 99285; J1100; J1940; J2405; J3010; P9016

== ENCOUNTER 2022-03-18 09:30 | Outpatient (REF) | payer MEDICARE, SELFPAY ==
[2022-03-18 11:49] LABS: Hematocrit 28.2 % (42.0-52.0); Hemoglobin 8.7 g/dl (14.0-18.0); Mean Corpuscular HGB Conc 30.9 g/dl (31.0-36.0); Mean Corpuscular Hemoglobin 25.5 pg (27.0-33.0); Mean Corpuscular Volume 82.7 fL (80.0-98.0); Mean Platelet Volume 10.5 fL (9.4-12.4); Platelet Count 118 X10*3/uL (160-400); Red Blood Count 3.41 X10*6/uL (4.60-5.80); Red Cell Distribution Width 16.5 % (11.0-16.0); White Blood Count 5.5 X10*3/uL (4.8-10.8)
[2022-03-18 12:09] LABS: Anion Gap 15 (12-20); Blood Urea Nitrogen 59 mg/dL (9-16); Calcium 8.4 mg/dL (8.4-10.2); Carbon Dioxide 27 mmol/L (22-29); Chloride 105 mmol/L (96-108); Estimated Glomerular Filt Rate 20; Glucose Random 184 mg/dL (60-115); Potassium 3.1 mmol/L (3.3-5.1); Sodium 144 mmol/L (135-145)
== END 2022-03-18 09:31 | disposition home or self-care (01) ==
LOC: HO.HMGCLDS 09:30
PROVIDERS: Absent Provider Student in an Organized Health Care Education/Training Program; PCP Internal Medicine; Visit Provider Internal Medicine
DX: N17.9 Acute kidney failure, unspecified (principal); D64.9 Anemia, unspecified
CPT/HCPCS: 36415; 80048; 85027

== ENCOUNTER → 2022-04-03 14:32 | Outpatient (BNVA) | payer MEDICARE, SELFPAY | PROVIDERS: PCP Internal Medicine; Visit Provider Internal Medicine Cardiovascular Disease | DX: I11.0 Hypertensive heart disease with heart failure (principal); I50.32 Chronic diastolic (congestive) heart failure; Z79.899 Other long term (current) drug therapy | CPT/HCPCS: 99212 ==

== ENCOUNTER 2022-04-17 | Outpatient (REF) | payer MEDICARE, SELFPAY | END 2022-04-17 12:32 | disposition home or self-care (01) | LOC: HO.HMGCLDS | PROVIDERS: PCP Internal Medicine; Visit Provider Internal Medicine | DX: Z13.89 Encounter for screening for other disorder (principal) ==

== ENCOUNTER 2022-04-18 13:46 | Outpatient (REF) | payer MEDICARE, SELFPAY ==
[2022-04-18 16:25] LABS: MANUAL DIFF FLAG NO
[2022-04-18 16:30] LABS: Basophils Percent Auto 0.7 % (0-2); Eosinophils Absolute Auto 0.2 X10*3/uL (0.0-0.4); Eosinophils Percent Auto 4.1 % (0-4); Hematocrit 27.1 % (42.0-52.0); Hemoglobin 8.5 g/dl (14.0-18.0); Imm Gran Abs Auto 0.02 X10*3/uL (0.00-0.03); Imm Gran Pct Auto 0.5 % (0.0-0.4); Lymphocytes Absolute Auto 0.4 X10*3/uL (1.2-4.9); Lymphocytes Percent Auto 8.2 % (20-40); Mean Corpuscular HGB Conc 31.4 g/dl (31.0-36.0); Mean Corpuscular Hemoglobin 25.9 pg (27.0-33.0); Mean Corpuscular Volume 82.6 fL (80.0-98.0); Mean Platelet Volume 10.1 fL (9.4-12.4); Monocytes Absolute Auto 0.5 X10*3/uL (0.1-1.2); Monocytes Percent Auto 10.9 % (2-11); Neutrophils Absolute Auto 3.3 x10*3/uL (2.0-8.3); Neutrophils Percent Auto 75.6 % (45-73); Platelet Count 125 X10*3/uL (160-400); Red Blood Count 3.28 X10*6/uL (4.60-5.80); Red Cell Distribution Width 18.3 % (11.0-16.0); White Blood Count 4.4 X10*3/uL (4.8-10.8)
[2022-04-18 16:40] LABS: Alanine Aminotransferase 23 U/L (0-40); Albumin Level 3.8 g/dL (3.5-5.0); Alkaline Phosphatase 144 U/L (39-117); Anion Gap 13 (12-20); Aspartate Amino Transferase 21 U/L (5-37); Bilirubin Total 0.4 mg/dL (0.0-1.0); Blood Urea Nitrogen 49 mg/dL (9-16); Calcium 8.7 mg/dL (8.4-10.2); Carbon Dioxide 26 mmol/L (22-29); Chloride 105 mmol/L (96-108); Estimated Average Glucose 126 mg/dL; Estimated Glomerular Filt Rate 19; Glucose Random 240 mg/dL (60-115); Potassium 3.3 mmol/L (3.3-5.1); Sodium 141 mmol/L (135-145); Total Protein 5.9 g/dL (6.5-8.0)
== END 2022-04-18 13:47 | disposition home or self-care (01) ==
LOC: HO.HMGCLDS 13:46
PROVIDERS: Visit Provider Internal Medicine
DX: D64.9 Anemia, unspecified (principal); E11.3599 Type 2 diabetes mellitus with proliferative diabetic retinopathy without macular edema, unspecified eye; E11.65 Type 2 diabetes mellitus with hyperglycemia; N18.9 Chronic kidney disease, unspecified
CPT/HCPCS: 36415; 80053; 83036; 85025

== ENCOUNTER → 2022-04-24 07:48 | Outpatient (BNVA) | payer MEDICARE, SELFPAY | PROVIDERS: PCP Internal Medicine; Visit Provider Nurse Practitioner Family | DX: G47.33 Obstructive sleep apnea (adult) (pediatric) (principal); R06.83 Snoring | CPT/HCPCS: 99202 ==

== ENCOUNTER 2024-09-12 10:04 | Outpatient (AMB) | payer MEDICARE, SELFPAY ==
--- NOTE | 2024-09-12 10:28 | MHC.OFFVIS ---
Vital Signs 09/12/24 10:29 Height 5 ft 7 in Weight 180 lb BMI 28.2 BP 140/62 H Pulse 52 Pulse Source Monitor Intake Visit Reasons: overdue followup Intake Note: overdue f/up [employer] Underwriter Required: No Accompanied by: Self / Same As Patient Allergies allopurinol [ALLOPURINOL] Allergy (Intermediate, Verified 04/24/22 08:04) HIVES, rash DUST Allergy (Mild, Uncoded 04/24/22 08:04) Cough Medication List - Last Reconciled 09/12/24 by Molina Orellana MD amlodipine 10 mg PO DAILY atorvastatin (Lipitor) 40 mg PO BEDTIME carvedilol 25 mg PO BID cholecalciferol (vitamin D3) (Vitamin D3) 2 tabs PO DAILY clonidine HCl 0.2 mg (2 x 0.1 mg) PO BID ferrous sulfate 325 mg PO DAILY furosemide 40 mg PO ONCE hydralazine 100 mg PO TID insulin NPH and regular human 100 unit/mL (70-30) (Humulin 70/30 U-100 KwikPen) 20 units subcut BEDTIME insulin NPH and regular human 100 unit/mL (70-30) (Humulin 70/30 U-100 KwikPen) 40 units subcut DAILY isosorbide mononitrate ER 120 mg PO DAILY lamotrigine 3 tabs PO DAILY potassium chloride ER 20 mEq PO DAILY sertraline 2 tabs PO DAILY sodium bicarbonate 650 mg PO BID HPI Comments Details: 69-year-old gentleman in moderate coronary artery 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 His blood pressure in the office is elevated. He is denying any chest discomfort or shortness of breath. He is saying he has been taking his medications regularly and to his medications today. Only change in medication is that his ARB has been strong due to worsening kidney function. Reports that he has been taking medications regularly otherwise. He still has lower extremity edema and is taking furosemide 80 mg twice a day. Denies any nighttime symptoms. He will need a CPAP machine and is asking whether he can be referred to sleep medicine. 09/12/2024: He is here for follow-up after couple of years. He unfortunately had a hemorrhagic stroke. This was due to significant hypertension. He has been following closely with Nephrology. He is on multiple medicines and blood pressure appears to be better but still mildly elevated. He came in a wheelchair. He is currently in a nursing facility. No chest pains or shortness of breath. 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 His left leg is wrapped currently. He has significant itching and scratch macias on his legs. [facility] Medical History Abnormal exercise tolerance test Chronic diastolic heart failure CKD (chronic kidney disease) Diabetes Hypertension Obesity Patellofemoral arthritis of left knee Sleep apnea Surgical History S/P cardiac cath Hx of colonoscopy with polypectomy H/O nasal septoplasty History of adjustable gastric banding Family History Father No problems noted. Mother Diabetes Paternal Aunt Anesthesia complication Social History Household Members: Family Household Members Other:: sister Housing: House Do you presently have visiting nurse or other home services: Yes Alcohol intake: never Patient Tobacco Use Status: Former Tobacco user Second Hand Smoke Exposure: No service: No Current occupational status: retired Current occupation: rt hand Review of Systems Const Denies chills, Denies fatigue, Denies fever(s), Denies frequent falls, Denies weakness, Denies weight gain and Denies weight loss ENT Denies dizziness Card Denies chest pain, Denies leg edema, Denies lightheadedness, Denies palpitations, Denies dyspnea and Denies dyspnea on exertion Resp Denies cough, Denies dyspnea and Denies dyspnea on exertion GI Denies hematochezia Musc Denies abnormal gait, Denies muscle weakness, Denies numbness, Denies radiating pain into limb and Denies tingling Neuro Denies abnormal gait, Denies dizziness, Denies frequent falls, Denies numbness, Denies tingling and Denies weakness Endo Denies fatigue and Denies palpitations Physical Exam Vital Signs: Last Vital Signs Pulse 52 09/12/24 10:29 BP 140/62 H 09/12/24 10:29 BMI result Body Mass Index 28.2 GENERAL APPEARANCE: pleasant, in no acute distress. NECK/THYROID: no carotid bruit, no jugular venous distention. HEART: no murmurs, regular rate and rhythm, S1, S2 normal. LUNGS: clear to auscultation bilaterally. ABDOMEN: normal, bowel sounds present, soft, nontender, nondistended. EXTREMITIES: No significant edema. Left leg in Efrem wrap. PERIPHERAL PULSES: equal. NEUROLOGIC: nonfocal, , alert and oriented. PSYCH: mood/affect full range. Assessment & Plan Assessment & Plan (1) Chronic diastolic heart failure: Code(s): I50.32 - Chronic diastolic (congestive) heart failure Category: Medical (2) Hypertension: Comment: Controlled Code(s): I10 - Essential (primary) hypertension Category: Medical Plan Pleasant 69-year-old gentleman here for follow-up. He has background history of chronic kidney disease, hemorrhagic stroke and hypertension. He also has moderate coronary artery disease based on cardiac catheterization in the past. No anginal symptoms. He is here after 2 years for follow-up. He has gone downhill significantly after hemorrhagic stroke. He is currently in a nursing facility and in a wheelchair. He is undergoing physiotherapy. Blood pressure is better than before but still mildly elevated. He is following with Nephrology closely and I will let them manage his blood pressure. Clinically not in heart failure. You can see us back in 6 months. Thank you for allowing me to participate in the care of your patient. Please feel free to contact me if you have any questions. Coding Level of Care Code Est Pt Level 4 (53376) Diagnoses Chronic diastolic heart failure I50.32 Hypertension I10
[2024-09-12 10:29] VITALS: BP 140/62; PULSE 52; BMI 28.2
== END 2024-09-12 11:14 | disposition home or self-care (01) ==
PROVIDERS: PCP Family Medicine Geriatric Medicine; Visit Provider Internal Medicine Cardiovascular Disease
DX: I50.32 Chronic diastolic (congestive) heart failure (principal); I10 Essential (primary) hypertension
CPT/HCPCS: 99214

== ENCOUNTER → 2024-09-12 10:04 | Outpatient (BNVA) | payer MEDICARE, SELFPAY | PROVIDERS: PCP Family Medicine Geriatric Medicine; Visit Provider Internal Medicine Cardiovascular Disease | DX: I13.0 Hypertensive heart and chronic kidney disease with heart failure and stage 1 through stage 4 chronic kidney disease, or unspecified chronic kidney disease (principal); I50.32 Chronic diastolic (congestive) heart failure; N18.9 Chronic kidney disease, unspecified | CPT/HCPCS: 99212 ==